=== PATIENT | male | born 1955 | race Caucasian/White ===

== ENCOUNTER 2020-11-01 13:08 | Inpatient (IN) | payer MEDICAID ==
[~2020-11-01] VITALS: Ht 170.2 cm; Wt 69.4 kg
--- NOTE | 2020-11-01 13:56 | NUR ---
DR. LEVY (ONCOLOGIST) [phone]
[2020-11-01] MEDS ORDERED: IV NS 0.9% 500 ML BAG IV ONE (14:00)
--- NOTE | 2020-11-01 14:00 | NUR ---
DA FROM PT'S ONCOLOGIST OFFICE TO ER BED 7. AAOX2. TRACH PT, NON VENTILATED. NOT IN RESP DISTRESS. PT WAS SENT TO THE ONCOLIGIST, DR. LEVY TO THE ER FOR DEHAYDRATION AND MALIGNANT HYPERCALCEMIA. PER ONCOLOGIST, THE LAB THAT WAS WITH THE PAT WAS 2 DAYS OLD WITH CALCIUM RESULT 13.1. PT WAS NOTED HYPOTENSIVE WITH BP OF 87/55 UPON TRIAGE. PT IS AFEBRILE. ANSWER VIA GUSTURING. AWAITING MD FOR EVAL. PT ON MONITOR. IV LINE ESTABLISHED ON L AC 20, BLOOD DRAWN AND SENT TO LAB
[2020-11-01] MEDS ORDERED: LIDOCAINE 2% JEL UROJET 10 ML MM ONE (15:07)
[2020-11-01 15:29] LABS: BASOPHILS # (AUTO) 0.1 /CMM (0.0-0.2); BASOPHILS % (AUTO) 0.7 % (0.0-2.0); EOSINOPHILS % (AUTO) 7.3 % (0.0-6.0); HEMATOCRIT 33 % (39-51); HEMOGLOBIN 9.9 g/dL (13.5-17.5); LYMPHOCYTES # (AUTO) 1.2 /CMM (0.8-4.8); LYMPHOCYTES % (AUTO) 10.3 % (20.0-44.0); MEAN CORPUSCULAR HGB CONC 30 g/dl (31.0-36.0); MEAN CORPUSCULAR VOLUME 88 fL (80-96); MONOCYTES % (AUTO) 8.2 % (2.0-12.0); NEUTROPHILS # (AUTO) 8.7 /CMM (1.8-8.9); NEUTROPHILS % (AUTO) 73.5 % (43.0-81.0); PLATELET COUNT (AUTO) 416 /CMM (150-450); RED BLOOD CELL COUNT(AUTO) 3.68 MIL/uL (4.5-6.0); WHITE BLOOD COUNT (AUTO) 11.8 K/uL (4.3-11.0)
[2020-11-01 15:34] LABS: BILIRUBIN,URINE NEGATIVE (NEGATIVE); COLOR,URINE YELLOW (YELLOW); LEUKOCYTE ESTERASE ,URINE NEGATIVE (NEGATIVE); NITRITE, URINE NEGATIVE (NEGATIVE); PH,URINE 5.5 (5.0-8.0); PROTEIN,URINE NEGATIVE (NEGATIVE); UGLUCOSE NEGATIVE (NEGATIVE); UROBILINOGEN,URINE 0.2 EU/dL (0.2)
[2020-11-01 15:38] LABS: POTASSIUM 4.7 mmol/L (3.5-5.1)
[2020-11-01 15:41] LABS: CALCIUM, SERUM 13.3 mg/dL (8.5-10.1)
[2020-11-01 15:43] LABS: BILIRUBIN,DIRECT 0.1 mg/dL (0.0-0.2); BILIRUBIN,TOTAL 0.2 mg/dL (0.2-1.0); TOTAL PROTEIN, SERUM 7.6 g/dL (6.4-8.2)
--- NOTE | 2020-11-01 16:37 | NUR ---
DR. BRUSH ORDERED TO GIVEN NS BOLUS OF 31ML/KG/HR. 31ML X 68.5KG = 2123.5 ML/HR. PT ALREADY RECIEVED 1000ML. ADDITIONAL 1123.5ML WILL BE GVEN
[2020-11-01] MEDS ORDERED: MEROPENEM 1 G in IV NS 0.9% 100 ML IV STA (16:46)
[2020-11-01] MEDS ORDERED: LOSA50TA39 GT (16:47)
[2020-11-01] MEDS ORDERED: OXYC5TAB3 PO (16:47)
[2020-11-01] MEDS ORDERED: MAG-55 GT (16:47)
[2020-11-01] MEDS ORDERED: BISA10SU11 RC (16:47)
[2020-11-01] MEDS ORDERED: ALBU2.5V38 IH (16:47)
[2020-11-01] MEDS ORDERED: ENOX40DI SQ (16:47)
[2020-11-01] MEDS ORDERED: ACET325T53 GT (16:47)
[2020-11-01] MEDS ORDERED: IPRA3AMP22 IH (16:47)
[2020-11-01] MEDS ORDERED: MAGN400O6 GT (16:47)
[2020-11-01] MEDS ORDERED: DOCU-141 GT (16:47)
[2020-11-01] MEDS ORDERED: ASCO500C17 GT (16:47)
[2020-11-01] MEDS ORDERED: CALC3.7S NS (16:47)
[2020-11-01] MEDS ORDERED: INSU100V42 (16:47)
[2020-11-01] MEDS ORDERED: FOLI0.8T3 GT (16:47)
[2020-11-01] MEDS ORDERED: BENEP PO (16:47)
[2020-11-01] MEDS ORDERED: BLOO-697 IN (16:48)
[2020-11-01] MEDS ORDERED: IV NS 0.9% 1,000 ML BAG IV ONE (17:00)
[2020-11-01] MEDS ORDERED: VANCOMYCIN 1 GM in IV D5W 250 ML IV SCH (17:00)
[2020-11-01] MEDS ORDERED: VANCOMYCIN 1 GM VIAL ONE (17:05)
--- NOTE | 2020-11-01 17:17 | NUR ---
REPORT GIVEN TO SHIRA MIRANDA FOR DAMON
--- NOTE | 2020-11-01 17:33 | NUR ---
PT WAS TRANSPORTED TO UNIT ON [place] WITH EMT AND RN AT BEDSIDE WITH ACLS PROTOCOL. NAD NOTED DURING TRANSPORT.
[2020-11-01 18:15] VITALS: BP 119/71
--- NOTE | 2020-11-01 18:30 | NUR ---
RN NOTE WARM BLANKETS APPLIED FOR TEMP OF 94.8. WILL CONTINUE TO MONITOR AND ENDORSE TO OFFAL SEPARATOR RN.
--- NOTE | 2020-11-01 19:00 | NUR ---
RN NOTE RECEIVED PATIENT IN BED, AO X 2-3, MOUTHS WORDS, OBEYS COMMANDS, IN NO S/SX OF ACUTE DISTRESS AT THIS TIME. ON TRACH TO T-PIECE, SATURATION AT 98% ON 5LPM, SR ON THE MONITOR, HR IS 82. NOTED IV SITE AT R AC 20G, PATENT AND FLUSHING WELL, NO S/S OF INFECTION OR INFILTRATION. GTUBE INTACT POSITIVE PLACEMENT NOTED, NO RESIDUAL. SAFETY MEASURES IMPLEMENTED. PATIENT BED ALARM IS ON. HEAD OF BED ELEVATED. BED IS LOCKED, IN LOWEST POSITION AND SIDE RAILS UP. CALL LIGHT WITHIN REACH OF THE PATIENT. WILL CONTINUE TO MONITOR AND REASSESS FOR ANY CHANGES. AWAITING MD ADMITTING ORDERS.
--- NOTE | 2020-11-01 19:04 | NUR ---
RN NOTE PATIENT IS IN BED WITH HOB AT SEMI FOWLERS POSITION. PATIENT ON 5L COOL AEROSOL NO SIGNS OF LABORED BREATHING. PATIENT IS AOX2. IV ACCESS IS PATENT AND INTACT. BED IS LOCKED IN THE LOWEST POSITION, 3 GUARD RAILS RAISED, CALL JEFFREY WITHIN REACH, AND ALL HOSPITAL SAFETY PRECAUTIONS ARE BEING FOLLOWED. WILL ENDORSE TO SELENA LANCASTER RN.
[2020-11-01 20:00] VITALS: BP 126/76
--- NOTE | 2020-11-01 21:00 | NUR ---
RN NOTE TELEPHONE CALL TO [facility] TO VERIFY TUBE FEEDING FORMULA, SPOKE WITH JOSE, STATED PATIENT WAS ON JEVITY 1.2 AT 55 ML/HR.
[2020-11-01] MEDS ORDERED: IV NS 0.9% 1,000 ML IV ONE ×2 (21:30)
[2020-11-01] MEDS ORDERED: BISACODYL SUPP (10 MG) 10 MG/SUPP.RECT SUPP.RECT RC PRN (21:30)
[2020-11-01] MEDS ORDERED: ACETAMINOPHEN 650 MG/SUPP.RECT RC PRN (21:30)
[2020-11-01] MEDS ORDERED: ALBUTEROL FS 2.5 MG/3 ML VIAL.NEB IH PRN (21:30)
[2020-11-01] MEDS ORDERED: Z GUARD REMEDY 2 OZ OINT TP PRN (21:30)
[2020-11-01] MEDS ORDERED: ONDANSETRON HCL/PF 4 MG/2 ML VIAL IVP PRN (21:30)
[2020-11-01] MEDS ORDERED: PAMIDRONATE 90 MG in IV NS 0.9% 500 ML IV ONE (21:30)
[2020-11-01] MEDS ORDERED: DEXTROSE 50%-WATER 50 ML DISP.SYRIN IV PRN (22:00)
[2020-11-01] MEDS: INSULIN GLARGINE, 100 UNIT/ML CARTRIDGE SQ SCH (22:00)
[2020-11-01] MEDS: LOSARTAN POTASSIUM 50 MG TABLET GT SCH (22:09)
[2020-11-01] MEDS: ENOXAPARIN SODIUM 40 MG/0.4 ML DISP.SYRIN SQ SCH (22:09)
[2020-11-01] MEDS ORDERED: PAMIDRONATE 30 MG/VIAL VIAL IV ONE (22:20)
[2020-11-01] MEDS ORDERED: INSULIN REGULAR, HUMAN 100 UNIT/ML 3 ML VIAL ONE (22:21)
[2020-11-01] MEDS ORDERED: INSULIN GLARGINE, 100 UNIT/ML CARTRIDGE SQ ONE (22:21)
[2020-11-01] MEDS ORDERED: JEVITY 1.2 CAL 1,000 ML BOTTLE GT PRN (23:00)
[2020-11-01] MEDS: BLOOD SUGAR DIAGNOSTIC 1 EACH STRIP IN SCH (23:17)
[2020-11-02] VITALS: BP 106/68
[2020-11-02] MEDS: MORPHINE SULFATE INJ 2 MG/ML DISP.SYRIN IV PRN ×2 (01:14→23:36)
[2020-11-02 03:39] LABS: BASOPHILS # (AUTO) 0.1 K/uL (0.0-0.2); EOSINOPHILS % (AUTO) 4.3 % (0.0-6.0); HEMATOCRIT 29 % (39-51); LYMPHOCYTES % (AUTO) 6.9 % (20.0-44.0); MEAN CORPUSCULAR HGB CONC 31 g/dl (31.0-36.0); MEAN CORPUSCULAR VOLUME 88 fL (80-96); MONOCYTES # (AUTO) 0.8 K/uL (0.1-1.30); MONOCYTES % (AUTO) 5.7 % (2.0-12.0); NEUTROPHILS # (AUTO) 11.5 K/uL (1.8-8.9); NEUTROPHILS % (AUTO) 82.1 % (43.0-81.0); PLATELET COUNT (AUTO) 432 K/uL (150-450)
[2020-11-02 04:00] VITALS: BP 113/68
[2020-11-02 04:04] LABS: THYROID STIMULATING HORMONE 4.246 uIU/mL (0.358-3.74)
[2020-11-02 05:30] LABS: ALBUMIN 1.8 g/dL (3.4-5.0); BILIRUBIN,TOTAL 0.2 mg/dL (0.2-1.0); MAGNESIUM 2.1 mg/dL (1.8-2.4); PHOSPHORUS 3.1 mg/dL (2.5-4.9); POTASSIUM 4.7 mmol/L (3.5-5.1); TOTAL PROTEIN, SERUM 7.2 g/dL (6.4-8.2)
[2020-11-02] MEDS: BLOOD SUGAR DIAGNOSTIC 1 EACH STRIP IN SCH ×4 (05:57→23:34)
--- NOTE | 2020-11-02 06:32 | NUR ---
RN NOTE TELEPHONE CALL FROM LAB, RELAYED CRITICAL LAB VALUE CALCIUM 13.0. DR WYNN WAS NOTIFIED, AWAITING MD ORDERS. MERCHANDISE PROCESSOR MADE AWARE.
[2020-11-02] MEDS ORDERED: JEVITY 1.2 CAL 1,000 ML BOTTLE GT PRN ×2 (07:10→09:00)
--- NOTE | 2020-11-02 07:40 | NUR ---
STERILE SUPERVISOR OPENING NOTE PATIENT IS IN BED RESTING, PATIENT IS ON TACHE, OXYGEN SATURATION ABOVE 90%, PATIENT HAS G-TUBE RUNNING JEVITY 1.2, PATIENT IS ON TELE MONITOR READING SINUS RHYTHM. SAFETY PRECAUTIONS ARE ON BED IS LOCKED IN THE LOWEST POSITION, WITH SIDE RAILS UP, CALL LIGHT WITHIN REACH, WILL CONTINUE TO MONITOR CLOSELY.
[2020-11-02 08:00] VITALS: BP 109/62
--- NOTE | 2020-11-02 09:06 | NUR ---
WOUND CARE CONSULT: PT PRESENTS WITH LARGE DRAINING RAISED LESION TO LEFT SIDE OF NECK WELL SACRAL INTACT DEEP TISSUE INJURY, PRESENT ON ADMISSION. DIFFICULT ASSESSMENT DUE TO PT MOANING WHEN TURNED TO SIDE DUE TO LESION DISCOMFORT. PT IS ON TIFFANY ISOFLEX LOW AIRLOSS BED. SURGICAL CONSULT CALLED TO DR RASMUSSEN. RECOMMENDATIONS MADE FOR SKIN PROTECTION. DISCUSSED WITH NURSING STAFF. IN AGREEMENT WITH PLAN OF CARE. Addendum: 11/02/20 at 0909 by LIA ANDERSON WNDNU Amended: Links added.
[2020-11-02] MEDS: FUROSEMIDE 20 MG/2 ML VIAL IV SCH (09:48)
[2020-11-02] MEDS: IV NS 0.9% 1,000 ML IV PRN ×2 (09:48→17:43)
[2020-11-02] MEDS: ASPIRIN EC 81 MG TABLET.DR PO SCH (09:49)
[2020-11-02] MEDS: PANTOPRAZOLE 40 MG VIAL IV SCH (09:49)
[2020-11-02] MEDS: CALCITONIN,SALMON,SYNTHETIC 3.7 ML SPRAY.PUMP NS SCH (09:52)
[2020-11-02 12:00] VITALS: BP 116/64
[2020-11-02] MEDS: INSULIN REGULAR, HUMAN 100 UNIT/ML 3 ML VIAL SQ PRN ×3 (13:29→23:35)
[2020-11-02] MEDS: FERROUS SULFATE UDC 300 MG/5 ML UDC PO SCH (15:28)
[2020-11-02 16:00] VITALS: BP 119/64
--- NOTE | 2020-11-02 18:33 | NUR ---
LIBERAL ARTS DEAN CLOSING NOTE PATIENT IS IN BED RESTING, PATIENT IS ON TACHE, OXYGEN SATURATION ABOVE 95%, PATIENT HAS G-TUBE RUNNING JEVITY 1.2, PATIENT IS ON TELE MONITOR READING SINUS RHYTHM IN 80s. SAFETY PRECAUTIONS ARE ON BED IS LOCKED IN THE LOWEST POSITION, WITH SIDE RAILS UP, CALL LIGHT WITHIN REACH, ENDORSE PATIENT TO GEOTECHNICAL FIELD TECHNICIAN NURSE. .
--- NOTE | 2020-11-02 19:00 | NUR ---
RN NOTE RECEIVED PATIENT IN BED, AO X 2-3, MOUTHS WORDS, OBEYS COMMANDS, IN NO S/SX OF ACUTE DISTRESS AT THIS TIME. ON TRACH TO T-PIECE, SATURATION AT 98% ON 5LPM, SR ON THE MONITOR, HR IS 85. NOTED IV SITE AT L AC 20G, PATENT AND FLUSHING WELL, NO S/S OF INFECTION OR INFILTRATION, WITH IV FLUID OF NS INFUSING AT 125 ML/HR. GTUBE INTACT POSITIVE PLACEMENT NOTED, NO RESIDUAL WITH TUBE FEEDING OF JEVITY 1.2 ANA AT 60ML/HR. SAFETY MEASURES IMPLEMENTED. PATIENT BED ALARM IS ON. HEAD OF BED ELEVATED. BED IS LOCKED, IN LOWEST POSITION AND SIDE RAILS UP. CALL LIGHT WITHIN REACH OF THE PATIENT. WILL CONTINUE TO MONITOR AND REASSESS FOR ANY CHANGES. AWAITING MD ADMITTING ORDERS.
[2020-11-02 20:00] VITALS: BP 120/68
--- NOTE | 2020-11-02 20:10 | NUR ---
RN NOTE MULTIPLE UNSUCCESSFUL ATTEMPTS TO CALL DAUGHTER DOMI ANDREWS AT [phone] TO [address]SENT FOR [address] WITH CONTRAST PER CARLOS SILVA. TELEPHONE CALL TO [facility] AT [phone], SPOKE WITH DANIEL, STATED DANCE HALL HOSTESS WOULD EITHER BE THE PATIENT'S DAUGHTER DOMI ANDREWS, OR GRAND DAUGHTER YANN ANDREWS ([phone]). TELEPHONE CALL TO YANN ANDREWS, SAID SHE IS THE MAIN DANCE HALL HOSTESS FOR THE PATIENT. SHE SAID SHE IS CONSENTING TO THE PROCEDURE CT WITH CONTRAST, WITH MOBILE HOME SERVICER YANN WITNESS. CONSENT FORM WAS SIGNED AND PLACED AT CHART.
[2020-11-02] MEDS: LOSARTAN POTASSIUM 50 MG TABLET GT SCH (21:38)
[2020-11-02] MEDS: ENOXAPARIN SODIUM 40 MG/0.4 ML DISP.SYRIN SQ SCH (21:38)
[2020-11-02] MEDS: INSULIN GLARGINE, 100 UNIT/ML CARTRIDGE SQ SCH (21:41)
[2020-11-03] VITALS: BP 111/67
--- NOTE | 2020-11-03 00:45 | NUR ---
RN NOTE TELEPHONE CALL TO LAB TO VERIFY IF PTHrP WAS DONE, PER MISCELLANEOUS ORDER FROM DR JALLOH. SPOKE WITH DEBO, STATED CORRECT ORDER WAS ENTERED ON SYSTEM, SPECIMEN WAS COLLECTED AND WAS SENT OUT. RESULTS PENDING. NET MOBILE DEVELOPER YANN ESPAÑA.
[2020-11-03 04:00] VITALS: BP 106/63
[2020-11-03] MEDS: BLOOD SUGAR DIAGNOSTIC 1 EACH STRIP IN SCH ×3 (05:38→17:33)
[2020-11-03] MEDS: MORPHINE SULFATE INJ 2 MG/ML DISP.SYRIN IV PRN ×2 (05:39→21:03)
[2020-11-03 06:00] LABS: BASOPHILS # (AUTO) 0.1 K/uL (0.0-0.2); EOSINOPHILS % (AUTO) 5.7 % (0.0-6.0); HEMATOCRIT 33 % (39-51); LYMPHOCYTES # (AUTO) 1.1 K/uL (0.8-4.8); MEAN CORPUSCULAR HGB CONC 31 g/dl (31.0-36.0); MEAN CORPUSCULAR VOLUME 88 fL (80-96); MONOCYTES # (AUTO) 0.8 K/uL (0.1-1.30); NEUTROPHILS # (AUTO) 8.7 K/uL (1.8-8.9); NEUTROPHILS % (AUTO) 76.3 % (43.0-81.0); PLATELET COUNT (AUTO) 420 K/uL (150-450); RED BLOOD CELL COUNT(AUTO) 3.69 MIL/uL (4.5-6.0); WHITE BLOOD COUNT (AUTO) 11.3 K/uL (4.3-11.0)
[2020-11-03 06:10] LABS: ALBUMIN 1.9 g/dL (3.4-5.0); BILIRUBIN,TOTAL 0.2 mg/dL (0.2-1.0); CALCIUM, SERUM 12.6 mg/dL (8.5-10.1); PHOSPHORUS 2.1 mg/dL (2.5-4.9); POTASSIUM 3.8 mmol/L (3.5-5.1); TOTAL PROTEIN, SERUM 7.4 g/dL (6.4-8.2)
[2020-11-03 08:00] VITALS: BP 114/71
[2020-11-03] MEDS ORDERED: CT SWABBABLE VALVE TRANS SET 1 EA INFUS.SET MC ONE (08:04)
[2020-11-03] MEDS ORDERED: IOHEXOL-300 100 ML VIAL IV ONE (08:04)
[2020-11-03] MEDS ORDERED: IV NS 0.9% 250 ML IV ONE (08:04)
[2020-11-03 08:06] LABS: IMMUNOGLOBULIN A, SERUM 868 mg/dL (61-437); IMMUNOGLOBULIN G, SERUM 2033 mg/dL (603-1613); IMMUNOGLOBULIN M, SERUM 69 mg/dL (20-172)
[2020-11-03] MEDS: FUROSEMIDE 20 MG/2 ML VIAL IV SCH (09:35)
[2020-11-03] MEDS: ASPIRIN EC 81 MG TABLET.DR PO SCH (09:35)
[2020-11-03] MEDS: FERROUS SULFATE UDC 300 MG/5 ML UDC PO SCH (09:35)
[2020-11-03] MEDS: CALCITONIN,SALMON,SYNTHETIC 3.7 ML SPRAY.PUMP NS SCH (09:56)
[2020-11-03] MEDS: PANTOPRAZOLE 40 MG VIAL IV SCH (09:56)
[2020-11-03] MEDS ORDERED: NEUTRA PHOS 1 POWD.PACKET GT ONE (10:30)
--- NOTE | 2020-11-03 11:00 | NUR ---
Application Internship assisted patient with tele box to Radiology for exam. Patient stable and roge well. Iv site free of infiltration.
[2020-11-03] MEDS: INSULIN REGULAR, HUMAN 100 UNIT/ML 3 ML VIAL SQ PRN ×2 (13:06→17:33)
[2020-11-03 14:07] LABS: *SPE A/G RATIO 0.5 (0.7-1.7); *SPE ALBUMIN 2.1 g/dL (2.9-4.4); *SPE ALPHA-1-GLOBULIN 0.3 g/dL (0.0-0.4); *SPE ALPHA-2-GLOBULIN 0.8 g/dL (0.4-1.0); *SPE BETA GLOBULIN 1.5 g/dL (0.7-1.3); *SPE GLOBULIN, TOTAL 4.6 g/dL (2.2-3.9); *SPE M-SPIKE Not Observed g/dL (Not Observed)
[2020-11-03 18:00] VITALS: BP 124/80
[2020-11-03] MEDS: IV 1/2NS 1000 ML 1,000 ML IV PRN (18:37)
--- NOTE | 2020-11-03 19:24 | NUR ---
RN CLOSING NOTES Patient is alert and oriented and able to mouth words. Breathing even and unlabored on trach t piece 5 liters. Vitals WNL. Gtube in place and patent with feeding running at 60 cc/hour. Condom cath in place. Patient on IV fluids 0.45% normal saline per MD Warren rawls orders due to Hypernatremia. Bed is in lowest and locked position. Will continue to monitor. Call light with in reach.Endorsed to next shift for DAMON.
--- NOTE | 2020-11-03 19:30 | NUR ---
RN NOTE RECEIVED PT ALERT, MOUTHING WORDS AND HAND SIGN FOR OK OR NOT, DENIES ANY PAIN AT THIS TIME. ON TPIECE AT 8 L. NO SIGNS OF DISTRESS. GT IN PLACE, ON GT FEEDING TOLERATING WELL, KEPT HOB ELEVATED, NO RESIDUALS NOTED. ON IV FLUIDS OF 1/2 NS, IV PATENT AND INTACT. CONDOM CATH IN PLACE. WILL CONTINUE TO MONITOR, ALL SAFETY MEASURES IN PLACE. CALL LIGHT WITHIN REACH BED LOCKED IN LOWEST POSITION, SIDE RAILS UP.
[2020-11-03 20:00] VITALS: BP 98/47
[2020-11-03] MEDS ORDERED: MEROPENEM 1 G in IV NS 0.9% 100 ML IV ONE (21:00)
[2020-11-03] MEDS ORDERED: MEROPENEM 500 MG in IV NS 0.9% 50 ML IV SCH (21:00)
[2020-11-03] MEDS: ENOXAPARIN SODIUM 40 MG/0.4 ML DISP.SYRIN SQ SCH (21:02)
[2020-11-03] MEDS: LOSARTAN POTASSIUM 50 MG TABLET GT SCH (21:56)
[2020-11-03] MEDS: INSULIN GLARGINE, 100 UNIT/ML CARTRIDGE SQ SCH (21:58)
[2020-11-04] MEDS: BLOOD SUGAR DIAGNOSTIC 1 EACH STRIP IN SCH ×5 (00:06→23:41)
[2020-11-04] MEDS: INSULIN REGULAR, HUMAN 100 UNIT/ML 3 ML VIAL SQ PRN ×2 (00:07→06:44)
[2020-11-04] MEDS: IV 1/2NS 1000 ML 1,000 ML IV PRN ×2 (03:53→22:31)
[2020-11-04 04:00] VITALS: BP 107/58
[2020-11-04] MEDS: MEROPENEM 1 G in IV NS 0.9% 100 ML IV SCH ×3 (04:39→22:29)
[2020-11-04 06:57] LABS: BASOPHILS # (AUTO) 0.1 K/uL (0.0-0.2); EOSINOPHILS % (AUTO) 6.6 % (0.0-6.0); HEMATOCRIT 32 % (39-51); HEMOGLOBIN 9.7 g/dL (13.5-17.5); LYMPHOCYTES % (AUTO) 9.4 % (20.0-44.0); MEAN CORPUSCULAR HGB CONC 30 g/dl (31.0-36.0); MEAN CORPUSCULAR VOLUME 92 fL (80-96); MONOCYTES # (AUTO) 0.8 K/uL (0.1-1.30); MONOCYTES % (AUTO) 7.2 % (2.0-12.0); NEUTROPHILS # (AUTO) 8.3 K/uL (1.8-8.9); NEUTROPHILS % (AUTO) 75.8 % (43.0-81.0); PLATELET COUNT (AUTO) 390 K/uL (150-450); RED BLOOD CELL COUNT(AUTO) 3.46 MIL/uL (4.5-6.0)
--- NOTE | 2020-11-04 07:00 | NUR ---
RN NOTE PT REMAIN IN BED, TOLERATING GT FEEDING, NO SIGNS OF ASPIRATION NOTED. KEPT HOB ELEVATED. VS STABLE, AFEBRILE. CONTINUE ON TPIECE AT 8L. SUCTIONED NEEDED. ON IVF OF 1/2 NS NO SIGNS OF INFILTRATION NOTED. KEPT CLEAN AND DRY. WILL ENDORSE TO NEXT SHIFT NURSE FOR DAMON.
[2020-11-04 07:29] LABS: CALCIUM, SERUM 11.9 mg/dL (8.5-10.1); CREATININE 0.9 mg/dL (0.6-1.3); MAGNESIUM 2.3 mg/dL (1.8-2.4); PHOSPHORUS 2.5 mg/dL (2.5-4.9); POTASSIUM 3.6 mmol/L (3.5-5.1)
--- NOTE | 2020-11-04 08:00 | NUR ---
RN OPENING NOTE PT AWAKE IN BED RESTING. A/O X3 AND UNDERSTANDS ROMANIAN. NODS/SHAKES HEAD TO NURSE INSTRUCTIONS. CURRENTLY ON T PIECE 8L. NO SOB OR RESPIRATORY DISTRESS PRESENT. O2 SAT 90%. NO HEEL BRUSHER PRESENT. ON BED PRESENT WITH DIAPER PRESENT. SKIN PROBLEMS PRESENT AND WOUND CARE GIVEN. WOUND PICTURES IN CHART. GT PRESENT WITH JEVITY RUNNING AT 60 ML/HR. IV PRESENT ON LA AC AND FLUSHES WELL. LABS AND ORDERS REVIEWED. SAFETY MEASURES IN PLACE. SIDE RAILS RAISED. BED LOWERED. CALL LIGHT WITHIN REACH. WILL CONTINUE TO MONITOR.
[2020-11-04] MEDS: ASPIRIN EC 81 MG TABLET.DR PO SCH (09:04)
[2020-11-04] MEDS: FUROSEMIDE 20 MG/2 ML VIAL IV SCH (09:04)
[2020-11-04] MEDS: FERROUS SULFATE UDC 300 MG/5 ML UDC PO SCH (09:04)
[2020-11-04] MEDS: CALCITONIN,SALMON,SYNTHETIC 3.7 ML SPRAY.PUMP NS SCH (09:07)
[2020-11-04] MEDS: PANTOPRAZOLE 40 MG TABLET.DR PO SCH (09:10)
[2020-11-04] MEDS: MORPHINE SULFATE INJ 2 MG/ML DISP.SYRIN IV PRN ×2 (09:16→13:12)
--- NOTE | 2020-11-04 10:00 | NUR ---
RN NOTE MORPHINE REASSESSMENT 02/03 915 NOT DONE BY NURSE YESTERDAY. PT AWAKE IN BED. WILL CONTINUE TO MONITOR
[2020-11-04 12:00] VITALS: BP 112/68
--- NOTE | 2020-11-04 19:02 | NUR ---
RN CLOSING NOTE PT AWAKE IN BED RESTING. A/O X3 AND UNDERSTANDS LITHUANIAN. NODS/SHAKES HEAD TO NURSE INSTRUCTIONS. CURRENTLY ON T PIECE 8L. NO SOB OR RESPIRATORY DISTRESS PRESENT. O2 SAT 90%. NO SEAT PACK INSPECTOR PRESENT. ON BED PRESENT WITH DIAPER PRESENT. SKIN PROBLEMS PRESENT AND WOUND CARE GIVEN. WOUND PICTURES IN CHART. GT PRESENT WITH JEVITY RUNNING AT 60 ML/HR. IV PRESENT ON LA AC AND FLUSHES WELL. LABS AND ORDERS REVIEWED. SAFETY MEASURES IN PLACE. SIDE RAILS RAISED. BED LOWERED. CALL LIGHT WITHIN REACH. REPORT TO BE GIVEN TO NIGHT NURSE FOR DAMON.
[2020-11-04 20:00] VITALS: BP 135/81
--- NOTE | 2020-11-04 20:19 | NUR ---
MS RN OPENING NOTE PATIENT IN BED A/OX4; GEORGIAN SPEAKING. ON O2 2LPM VIA N/C; TOLERATING WELL WITH NO SOB. NO S/SX OF PAIN OR DISCOMFORT. LAC #20G NS @ 75ML/HR; PATENT AND INTACT. SAFETY MEASURES IN PLACE: BED IN LOWEST LOCKED POSITION, SIDE RAILS UPX2, CALL LIGHT WITHIN EASY REACH. PATIENT IN STABLE CONDITION WILL CONTINUE PLAN OF CARE. Addendum: 11/05/20 at 0652 by JIMMY ART RN ERROR DISREGARD NOTE. WRONG PATIENT
[2020-11-04] MEDS: INSULIN GLARGINE, 100 UNIT/ML CARTRIDGE SQ SCH (22:00)
[2020-11-04] MEDS: ENOXAPARIN SODIUM 40 MG/0.4 ML DISP.SYRIN SQ SCH (22:30)
[2020-11-04] MEDS: LOSARTAN POTASSIUM 50 MG TABLET GT SCH (22:30)
[2020-11-05 04:00] VITALS: BP 119/68
--- NOTE | 2020-11-05 05:03 | NUR ---
RN notes In bed with eyes closed resting comfortably. No distress noted. Breathing even unlabored. On t-piece with 8lpm O2 tolerating well. No significant change of condition. Kept clean and dry. Vital signs wnl. Kept clean and dry. Will endorse to next shift for continuity of care.
[2020-11-05] MEDS: IV 1/2NS 1000 ML 1,000 ML IV PRN (05:07)
[2020-11-05] MEDS: MEROPENEM 1 G in IV NS 0.9% 100 ML IV SCH ×2 (05:08→12:27)
[2020-11-05] MEDS: BLOOD SUGAR DIAGNOSTIC 1 EACH STRIP IN SCH ×2 (05:38→12:14)
[2020-11-05] MEDS: INSULIN GLARGINE, 100 UNIT/ML CARTRIDGE SQ SCH (05:39)
[2020-11-05 07:06] LABS: BASOPHILS # (AUTO) 0.1 K/uL (0.0-0.2); EOSINOPHILS % (AUTO) 4.1 % (0.0-6.0); HEMATOCRIT 33 % (39-51); HEMOGLOBIN 10.3 g/dL (13.5-17.5); LYMPHOCYTES # (AUTO) 1.2 K/uL (0.8-4.8); LYMPHOCYTES % (AUTO) 8.2 % (20.0-44.0); MEAN CORPUSCULAR HGB CONC 31 g/dl (31.0-36.0); MEAN CORPUSCULAR VOLUME 89 fL (80-96); MONOCYTES # (AUTO) 0.9 K/uL (0.1-1.30); MONOCYTES % (AUTO) 6.2 % (2.0-12.0); NEUTROPHILS # (AUTO) 11.3 K/uL (1.8-8.9); NEUTROPHILS % (AUTO) 80.5 % (43.0-81.0); PLATELET COUNT (AUTO) 381 K/uL (150-450); RED BLOOD CELL COUNT(AUTO) 3.77 MIL/uL (4.5-6.0); WHITE BLOOD COUNT (AUTO) 14.1 K/uL (4.3-11.0)
--- NOTE | 2020-11-05 07:46 | NUR ---
MS/RN OPENING NOTE RECEIVED PT IN BED RESTING. A/O X3 AND UNDERSTANDS LIBYAN. NODS/SHAKES HEAD TO NURSE INSTRUCTIONS. CURRENTLY ON T PIECE 8L. NO SOB OR RESPIRATORY DISTRESS PRESENT. GT PRESENT WITH JEVITY RUNNING AT 60 ML/HR. IV PRESENT ON LA AC WITH RUNNING NS AT @125 ML/HR. SAFETY MEASURES IN PLACE. SIDE RAILS UPX3, BED LOWERED AND LOCKED. CALL LIGHT WITHIN REACH. WILL CONTINUE TO MONITOR PATIENT.
[2020-11-05 07:49] LABS: CALCIUM, SERUM 11.6 mg/dL (8.5-10.1); CREATININE 0.7 mg/dL (0.6-1.3); PHOSPHORUS 2.7 mg/dL (2.5-4.9); POTASSIUM 3.6 mmol/L (3.5-5.1)
[2020-11-05 08:00] VITALS: BP 101/59
[2020-11-05] MEDS: PANTOPRAZOLE 40 MG TABLET.DR PO SCH (08:54)
[2020-11-05] MEDS: FUROSEMIDE 20 MG/2 ML VIAL IV SCH (08:54)
[2020-11-05] MEDS: ASPIRIN EC 81 MG TABLET.DR PO SCH (08:54)
[2020-11-05] MEDS: FERROUS SULFATE UDC 300 MG/5 ML UDC PO SCH (08:54)
[2020-11-05] MEDS: CALCITONIN,SALMON,SYNTHETIC 3.7 ML SPRAY.PUMP NS SCH (08:57)
[2020-11-05] MEDS ORDERED: MERO1PIG IV (11:48)
[2020-11-05] MEDS ORDERED: ASPI-1420 PO (11:48)
[2020-11-05] MEDS: INSULIN REGULAR, HUMAN 100 UNIT/ML 3 ML VIAL SQ PRN (12:31)
[2020-11-05 12:36] VITALS: BP 101/59
[2020-11-05 16:00] VITALS: BP 104/62
--- NOTE | 2020-11-05 16:45 | NUR ---
MS/ANODE REBUILDER NOTE PATIENT IS MEDICALLY STABLE. DR. JALLOH ORDERED DISCHARGED FOR THIS PATIENT. PATIENT IS TRANSFERRING TO [facility] AND CALLED IN ENDORSEMENTS TO ARIANNE (SPECIAL NEEDS TUTOR CHARGE NURSE) AT THE FACILITY. IV ACCESS ON LEFT AC LEFT ON INTACT AND PATENT DUE TO CONTINUATION OF IV ATB AT THE SNF. STAFF AWARE. NON-EMERGENCY TRANSPORTATION PICKED HIM UP, ENDORSEMENTS GIVEN TO RT CHETAN WITH THE EMT. PATIENT IS ALERT ORIENTED X2. G-TUBE AND T-PIECE ON 8 LPM OF OXYGEN SATURATING WELL AT 97%. V/S WITHIN NORMAL. ALL DISCHARGE PAPERS ENDORSED TO RT CHETAN. ALL BELONGINGS ACCOUNTED FOR.
== END 2020-11-05 16:58 | DRG 425 ==
LOC: ER 13:35 → TELE1 16:34 → MEDSG1 11-03 08:20
PROVIDERS: ADMIT Nurse Practitioner Acute Care; ATTEND Nurse Practitioner Acute Care
DX: E83.52 Hypercalcemia (principal); I21.4 Non-ST elevation (NSTEMI) myocardial infarction; N17.0 Acute kidney failure with tubular necrosis; J96.10 Chronic respiratory failure, unspecified whether with hypoxia or hypercapnia; C77.1 Secondary and unspecified malignant neoplasm of intrathoracic lymph nodes; Z93.0 Tracheostomy status; D68.59 Other primary thrombophilia; C79.89 Secondary malignant neoplasm of other specified sites; E86.0 Dehydration; R13.10 Dysphagia, unspecified; E11.40 Type 2 diabetes mellitus with diabetic neuropathy, unspecified; E88.09 Other disorders of plasma-protein metabolism, not elsewhere classified; G40.909 Epilepsy, unspecified, not intractable, without status epilepticus; E11.65 Type 2 diabetes mellitus with hyperglycemia; Z85.818 Personal history of malignant neoplasm of other sites of lip, oral cavity, and pharynx; Z20.822 Contact with and (suspected) exposure to COVID-19; D64.9 Anemia, unspecified; E78.5 Hyperlipidemia, unspecified; I70.0 Atherosclerosis of aorta; Z93.1 Gastrostomy status; Z79.4 Long term (current) use of insulin; Z79.51 Long term (current) use of inhaled steroids; Z79.899 Other long term (current) drug therapy; Z87.891 Personal history of nicotine dependence; L98.9 Disorder of the skin and subcutaneous tissue, unspecified; Z79.01 Long term (current) use of anticoagulants; Z74.09 Other reduced mobility; Z85.89 Personal history of malignant neoplasm of other organs and systems; D72.829 Elevated white blood cell count, unspecified; C76.0 Malignant neoplasm of head, face and neck; Z98.890 Other specified postprocedural states; J98.11 Atelectasis
CPT/HCPCS: 31720; 36415; 70491-TC; 71045-TC; 71260-TC; 80048-TC; 80053-TC; 80061-TC; 80076-TC; 82728-TC; 82784; 82962-TC; 83540-TC; 83605-TC; 83690-TC; 83735-TC; 84100-TC; 84155; 84165; 84443-TC; 84484-TC; 85025-TC; 85730-TC; 86334; 87040-TC; 87070-TC; 87081-TC; 87086-TC; 87186-TC; 93307-TC; 93970-TC; 94640-TC; 94668-TC; 94762-TC; 94799-TC; A4349; A6253; A7526; C9113; C9803; G0378; J1650; J1815; J1940; J2185; J2270; J2430; J3370; J3490; J7030; J7040; J7050; J7060; Q9967; U0003

== ENCOUNTER 2020-11-05 22:32 | Inpatient (IN) | payer MEDICAID, BC ==
[~2020-11-05] VITALS: Ht 170.2 cm; Wt 69.4 kg
[2020-11-05 01:30] VITALS: BP 113/69
[~2020-11-05 22:32] MED LIST: ACET325T53 GT; ALBU2.5V38 IH; ASCO500C17 GT; ASPI-1420 PO; BENEP PO; BISA10SU11 RC; BLOO-697 IN; CALC3.7S NS; DOCU-141 GT; ENOX40DI SQ; FOLI0.8T3 GT; INSU100V42; IPRA3AMP22 IH; LOSA50TA39 GT; MAG-55 GT; MAGN400O6 GT; MERO1PIG IV; OXYC5TAB3 PO
--- NOTE | 2020-11-05 22:40 | NUR ---
PATIENT CAME TO ER BED 5 C/O SOB FROM [facility] AT 80s O2 SATURATION. PATIENT IS ALERT AND ORIENTED x1. ABLE TO FOLLOW COMMANDS. PATIENT HAS TRACHEOSTOMY IN PLACE, G-TUBE. PATIENT IS BREATHING EVENLY AND UNLABORED ON ROOM AIR. CONNECTED TO THE MONITOR.
--- NOTE | 2020-11-05 23:01 | NUR ---
PATIENT IS SUCTIONED. YELLOW THICK SECRETIONS SUCTIONED FROM THE TRACHEOSTOMY SITE. PATIENT'S OXYGEN IS 100% ON BLOW BY O2.
--- NOTE | 2020-11-05 23:20 | NUR ---
BLOOD AND URINE COLLECTED AND SENT TO THE LAB.
[2020-11-05 23:30] LABS: BASOPHILS # (AUTO) 0.1 K/uL (0.0-0.2); EOSINOPHILS % (AUTO) 6.8 % (0.0-6.0); HEMATOCRIT 35 % (39-51); HEMOGLOBIN 10.9 g/dL (13.5-17.5); LYMPHOCYTES # (AUTO) 1.3 K/uL (0.8-4.8); LYMPHOCYTES % (AUTO) 9.8 % (20.0-44.0); MEAN CORPUSCULAR HGB CONC 32 g/dl (31.0-36.0); MEAN CORPUSCULAR VOLUME 87 fL (80-96); MONOCYTES # (AUTO) 0.8 K/uL (0.1-1.30); NEUTROPHILS # (AUTO) 10.4 K/uL (1.8-8.9); NEUTROPHILS % (AUTO) 76.4 % (43.0-81.0); PLATELET COUNT (AUTO) 404 K/uL (150-450); RED BLOOD CELL COUNT(AUTO) 3.96 MIL/uL (4.5-6.0); WHITE BLOOD COUNT (AUTO) 13.6 K/uL (4.3-11.0)
[2020-11-05 23:38] LABS: CALCIUM, SERUM 11.9 mg/dL (8.5-10.1); CARBON DIOXIDE 29 mmol/L (21-32); CHLORIDE 109 mmol/L (98-107); CREATININE 0.9 mg/dL (0.6-1.3); GLUCOSE 181 mg/dL (74-106); POTASSIUM 3.6 mmol/L (3.5-5.1); SODIUM SERUM 145 mmol/L (136-145); UREA NITROGEN, BLOOD 18 mg/dL (7-18)
--- NOTE | 2020-11-05 23:48 | NUR ---
LACTIC 2.3
[2020-11-05 23:50] LABS: ALANINE AMINOTRANSFERASE 28 U/L (12-78); ALBUMIN 1.8 g/dL (3.4-5.0); ALKALINE PHOSPHATASE 88 U/L (46-116); ASPARTATE AMINOTRANSFERASE 14 U/L (15-37); BILIRUBIN,DIRECT 0.1 mg/dL (0.0-0.2); BILIRUBIN,TOTAL 0.2 mg/dL (0.2-1.0); TOTAL PROTEIN, SERUM 7.8 g/dL (6.4-8.2)
[2020-11-05] MEDS ORDERED: LIDOCAINE 2% JEL UROJET 10 ML MM ONE (23:58)
[2020-11-06] MEDS ORDERED: PIPERACILLIN /TAZOBACTAM 3.375 G in IV D5W 50 ML IV ONE
[2020-11-06] MEDS ORDERED: VANCOMYCIN 1 GM in IV D5W 250 ML IV ONE
[2020-11-06] MEDS ORDERED: IV NS 0.9% 500 ML BAG IV ONE
[2020-11-06 00:07] LABS: BILIRUBIN,URINE Negative (NEGATIVE); COLOR,URINE YELLOW (YELLOW); LEUKOCYTE ESTERASE ,URINE Negative (NEGATIVE); NITRITE, URINE Negative (NEGATIVE); PROTEIN,URINE Negative (NEGATIVE); UGLUCOSE Negative (NEGATIVE); UROBILINOGEN,URINE 0.2 EU/dL (0.2)
[2020-11-06] MEDS ORDERED: PIPERACILLIN /TAZOBACTAM 3.375 G VIAL IV ONE ×2 (00:27→05:19)
[2020-11-06] MEDS ORDERED: VANCOMYCIN 1 GM VIAL ONE (00:27)
[2020-11-06] MEDS ORDERED: MAGNESIUM HYDROXIDE 30 ML UDC PO PRN (01:00)
[2020-11-06] MEDS ORDERED: ONDANSETRON HCL/PF 4 MG/2 ML VIAL IVP PRN (01:00)
[2020-11-06] MEDS ORDERED: Z GUARD REMEDY 2 OZ OINT TP PRN (01:00)
[2020-11-06] MEDS ORDERED: ACETAMINOPHEN 325 MG TABLET PO PRN (01:00)
[2020-11-06] MEDS ORDERED: MAG HYDROX/AL HYDROX/SIMETH 30 ML UDC PO PRN (01:00)
[2020-11-06] MEDS ORDERED: ZOLPIDEM TARTRATE 5 MG TABLET PO PRN (01:00)
--- NOTE | 2020-11-06 01:09 | NUR ---
REPORT GIVEN TO [facility].
--- NOTE | 2020-11-06 01:20 | NUR ---
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
--- NOTE | 2020-11-06 01:32 | NUR ---
PT TRANSFERED PER ACLS PROTOCOL
[2020-11-06] MEDS: IV 1/2NS 1000 ML 1,000 ML IV PRN ×2 (02:00→11:55)
--- NOTE | 2020-11-06 02:00 | NUR ---
TELE1 RN NOTES STARTED ON IVF 1/2 NS AT 125ML/HR RATE VIA IV PUMP WITH ORDER.
[2020-11-06] MEDS: ENOXAPARIN SODIUM 40 MG/0.4 ML DISP.SYRIN SQ SCH ×2 (02:03→20:13)
--- NOTE | 2020-11-06 02:03 | NUR ---
TELE1 RN NOTES STARTED ON LOVENOX 40MG GIVEN SQ ORDERED.
--- NOTE | 2020-11-06 03:30 | NUR ---
PERIOPERATIVE EDUCATOR NOTES REPORTED BY LAB,LACTIC ACID 2.0,TRENDING DOWN,PRESENT IVF INFUSING AT 125,L/HR RATE.
[2020-11-06] MEDS ORDERED: ZOSYN IVPB 3.375 G in IV D5W 50ml IV ONE (06:00)
--- NOTE | 2020-11-06 06:35 | NUR ---
TELE1 RN NOTES LYING COMFORTABLY ON BED,NO EPISODE OF SOB.IVF IN PROGRESS.KEPT NPO ORDERED.NO DISTRESS.WILL ENDORSE TO DAY NURSE FOR DAMON.
--- NOTE | 2020-11-06 07:05 | NUR ---
RN NOTES PATIENT IN BED RESTING, EYES CLOSED. A,O X1, OPENS EYES WHEN CALLED BY NAME. ON T PIECE AT 5L TO COOL AEROSOL, NO RESPIRATORY DISTRESS NOTED. IV LINE ON RAC #18 INTACT AND PATENT, IVF OF 1/2 NS @ 125ML/HR INFUSING WELL. NPO STATUS MAINTAINED. GT CLAMPED AT THIS TIME; INTACT AND ABLE TO BE FLUSHED. SAFETY MEASURES IN PLACE. WILL CONTINUE TO MONITOR.
--- NOTE | 2020-11-06 07:06 | NUR ---
RN NOTES TELE MONITOR, READING OF SR, HR IN THE 70'S, NO CARDIAC DISTRESS.
[2020-11-06] MEDS: PANTOPRAZOLE 40 MG TABLET.DR PO SCH (07:54)
[2020-11-06] MEDS ORDERED: DEXTROSE 50%-WATER 50 ML DISP.SYRIN IV PRN (09:00)
[2020-11-06] MEDS ORDERED: ALBUTEROL FS 2.5 MG/3 ML VIAL.NEB IH PRN (09:00)
[2020-11-06] MEDS ORDERED: ACETAMINOPHEN 650 MG/20.3 ML UDC GT PRN (09:00)
[2020-11-06] MEDS ORDERED: BENEPROTEIN PO SCH (09:00)
[2020-11-06] MEDS ORDERED: BISACODYL SUPP (10 MG) 10 MG/SUPP.RECT SUPP.RECT RC PRN (09:00)
[2020-11-06] MEDS ORDERED: Medication Not On Formulary EA (Ipratropium/Albuterol Sulfate (Ipratr-Albuterol 0.5-3 Mg IH PRN (09:00)
[2020-11-06] MEDS ORDERED: IPRATROPIUM NEB FS 0.5 MG/2.5 ML AMPUL.NEB NEB PRN (09:30)
[2020-11-06] MEDS ORDERED: ALBUTEROL FS 2.5 MG/0.5 ML VIAL.NEB NEB PRN (09:30)
[2020-11-06] MEDS: ASPIRIN EC 81 MG TABLET.DR PO SCH (09:45)
[2020-11-06] MEDS: ASCORBIC ACID 500 MG TABLET PO SCH (09:45)
[2020-11-06] MEDS: FOLIC ACID 1 MG TABLET PO SCH (09:45)
[2020-11-06] MEDS: CALCITONIN,SALMON,SYNTHETIC 3.7 ML SPRAY.PUMP NS SCH (10:03)
[2020-11-06] MEDS ORDERED: VANCOMYCIN 1 GM in IV D5W 250 ML IV SCH (12:00)
[2020-11-06] MEDS ORDERED: ZOSYN IVPB 3.375 G in IV D5W 50ml IV SCH (12:00)
[2020-11-06] MEDS: BLOOD SUGAR DIAGNOSTIC 1 EACH STRIP IN SCH ×3 (12:01→23:20)
[2020-11-06] MEDS: INSULIN REGULAR, HUMAN 100 UNIT/ML 3 ML VIAL SQ PRN ×3 (12:03→23:20)
[2020-11-06] MEDS ORDERED: COLISTIMETHATE SODIUM 75 MG in IV NS 0.9% 50 ML IV SCH (12:30)
[2020-11-06] MEDS: CLINDAMYCIN 900 MG in IV D5W 50 ML IV SCH ×2 (13:04→20:11)
--- NOTE | 2020-11-06 13:49 | NUR ---
RN NOTES PATIENT WAS SEEN BY ARNOLDO JONES NP; OK FOR WOUND CONSULT FOR PATIENT.
[2020-11-06] MEDS: COLISTIMETHATE SODIUM 150 MG in IV NS 0.9% 50 ML IV SCH (13:53)
--- NOTE | 2020-11-06 19:00 | NUR ---
RN NOTE RECEIVED PATIENT IN BED RESTING ALERT CONFUSED ON 28% COOL AEROSOL ON T PIECE O2:100% IV SITE IS ON RIGHT AC #22 INTACT PATENT IV HYDRATION 1/2 NS RUNNING 125CC/HR,INCONTINENT TO BOWEL/BLADDER,SAFETY MEASURE IMPLEMENT,BED IN LOW POSITION AND LOCKED, CONTINUE TO MONITOR.
--- NOTE | 2020-11-06 19:10 | NUR ---
RN NOTES PATIENT RESTING IN BED, ABLE TO BE AWAKENED. CONTINUES ON COOL AEROSOL VIA T-PIECE, NO RESPIRATORY DISTRESS NOTED. IVF INFUSING WELL. SAFETY MEASURES MAINTAINED. GT IS INTACT AND PATENT. ENDORSED TO HAND ASSEMBLER RN FOR DAMON.
[2020-11-06 20:00] VITALS: BP 135/79
[2020-11-06] MEDS: LOSARTAN POTASSIUM 50 MG TABLET GT SCH (21:12)
[2020-11-07] VITALS: BP 121/71
--- NOTE | 2020-11-07 | NUR ---
RN NOTE BLOOD SUGAR IS 83 NOT REQUIRES INSULIN CONTINUE TO MONITOR
[2020-11-07] MEDS: HYDROCODONE/APAP 5/325MG TABLET PO PRN ×2 (00:28→08:54)
[2020-11-07] MEDS: IV 1/2NS 1000 ML 1,000 ML IV PRN ×2 (00:31→10:32)
[2020-11-07] MEDS: COLISTIMETHATE SODIUM 150 MG in IV NS 0.9% 50 ML IV SCH ×2 (01:37→13:53)
[2020-11-07 04:00] VITALS: BP 104/55
[2020-11-07] MEDS: CLINDAMYCIN 900 MG in IV D5W 50 ML IV SCH (05:24)
--- NOTE | 2020-11-07 06:00 | NUR ---
RN NOTE BLOOD SUGAR IS 72 NOT REQUIRES INSULIN PER SLIDING SCALE CONTINUE TO MONITOR.
[2020-11-07 06:05] LABS: BASOPHILS % (AUTO) 0.9 % (0.0-2.0); EOSINOPHILS % (AUTO) 9.1 % (0.0-6.0); HEMATOCRIT 28 % (39-51); LYMPHOCYTES # (AUTO) 1.2 K/uL (0.8-4.8); LYMPHOCYTES % (AUTO) 11.2 % (20.0-44.0); MEAN CORPUSCULAR HGB CONC 32 g/dl (31.0-36.0); MEAN CORPUSCULAR VOLUME 87 fL (80-96); MONOCYTES % (AUTO) 6.8 % (2.0-12.0); NEUTROPHILS # (AUTO) 7.9 K/uL (1.8-8.9); PLATELET COUNT (AUTO) 306 K/uL (150-450); RED BLOOD CELL COUNT(AUTO) 3.25 MIL/uL (4.5-6.0)
[2020-11-07 06:06] LABS: BASOPHILS # (AUTO) 0.1 K/uL (0.0-0.2); MONOCYTES # (AUTO) 0.7 K/uL (0.1-1.30)
[2020-11-07 06:17] LABS: CALCIUM, SERUM 10.8 mg/dL (8.5-10.1); CREATININE 0.7 mg/dL (0.6-1.3); MAGNESIUM 1.8 mg/dL (1.8-2.4); PHOSPHORUS 2.5 mg/dL (2.5-4.9); POTASSIUM 3.3 mmol/L (3.5-5.1)
[2020-11-07] MEDS: BLOOD SUGAR DIAGNOSTIC 1 EACH STRIP IN SCH ×4 (06:17→23:58)
[2020-11-07] MEDS: INSULIN REGULAR, HUMAN 100 UNIT/ML 3 ML VIAL SQ PRN (06:18)
[2020-11-07 06:30] LABS: THYROID STIMULATING HORMONE 4.682 uIU/mL (0.358-3.74)
--- NOTE | 2020-11-07 07:29 | NUR ---
RN NOTE PATIENT REMAINS ON ALERT CONFUSED ON T PIECE COOL AEROSOL 28% O2:100% NO SOB NOT ACUTE DISTRESS NOTED ALL DUE MEDS GIVEN MD ORDERED KEPT CLEAN AND DRY ALL THE TIME,ALL NEEDS MET.ENDORSE NEXT COMING SHIFT FOR CONTINUATION OF CARE
[2020-11-07 08:00] VITALS: BP 115/63
--- NOTE | 2020-11-07 08:00 | NUR ---
GOLF CART ATTENDANT NOTE PATIENT IN BED , ALL NEEDS ATTENDED ALERT ORIENTEDX2 , ON TELE MONITOR SR HR 73, LT SIDE NECK WITH DRESSING INTACT , ON NPO AT THIS TIME ON IVF ORDERED, WITH TYRACH TO T PIECE COOL AEROSOL 28% SATURATION 100%, RT AC HL INTACT AND FLUSHED WELL . CALLED TO ARNOLDO SCHWARTZ RN LUBRICATION EQUIPMENT SERVICER ABOUT G TUBE FEEDING ,STATED THAT PLACE ORDER FOR FEEDING SINCE YESTERDAY, WILL START G TUBE FEEDING ORDERED, KEEP HOB ELEVATED AT ALL TIME ,BED IN LOWEST AND LOCKED POSITION, WILL MONITOR, C\O PAIN NECK, NORCO WILL BE GIVEN ORDERED , BLOOD SUGAR 62 MG DL WILL MONITOR
[2020-11-07] MEDS: FERROUS SULFATE UDC 300 MG/5 ML UDC PO SCH (08:53)
[2020-11-07] MEDS: ASPIRIN EC 81 MG TABLET.DR PO SCH (08:53)
[2020-11-07] MEDS: PANTOPRAZOLE 40 MG TABLET.DR PO SCH (08:54)
[2020-11-07] MEDS: FOLIC ACID 1 MG TABLET PO SCH (08:54)
[2020-11-07] MEDS: ASCORBIC ACID 500 MG TABLET PO SCH (08:54)
[2020-11-07] MEDS: CALCITONIN,SALMON,SYNTHETIC 3.7 ML SPRAY.PUMP NS SCH (08:56)
--- NOTE | 2020-11-07 09:05 | NUR ---
CENTRIFUGAL OPERATOR NOTE BLOOD SUGAR 93 MG\DL AT THIS TIME
--- NOTE | 2020-11-07 09:33 | NUR ---
SENIOR DB2 SYSTEMS PROGRAMMER NOTE PER DR SHARI MONTGOMERY TO STARRT G TUBE FEEDING
--- NOTE | 2020-11-07 10:53 | NUR ---
WOUND CARE CONSULT: PT PRESENTS WITH LEFT SIDE OF NECK RAISED LESION AND SACRAL BONY AREA WITH DISCOLORATION, PRESENT ON ADMISSION. RECOMMENDATIONS MADE FOR SKIN PROTECTION AND WOUND CARE. DISCUSSED WITH NURSING STAFF AND SURGICAL Lionel EDMONDS. PT IS ON TIFFANY ISOFLEX LOW AIRLOSS BED. PT IS INCONTINENT. MD IN AGREEMENT WITH PLAN OF CARE. Addendum: 11/07/20 at 1055 by LIA ANDERSON WNDNU Amended: Links added.
[2020-11-07] MEDS ORDERED: POTASSIUM CHLORIDE 20 MEQ POWDER PACKET GT SCH (11:00)
[2020-11-07 12:00] VITALS: BP 96/53
--- NOTE | 2020-11-07 13:24 | NUR ---
emergency telecommunications dispatcher note seen by rt on breathing tx
[2020-11-07] MEDS ORDERED: IV 1/2NS 1000 ML 1,000 ML IV PRN (14:01)
[2020-11-07 16:00] VITALS: BP 101/71
--- NOTE | 2020-11-07 17:27 | NUR ---
telephone installer note patient in bed cont withtrach to cooler aerosol, rt at bedside dressing change on lt side neck keep clean dry ,on g tube feeding tolerated, well keep hob elevated at all time ,will cont to monitor
--- NOTE | 2020-11-07 18:53 | NUR ---
RN CLOSING NOTE PATIENT IN BED RESTING, AWAKE AND RESPONSIVE A,O X1-2, OPENS EYES WHEN CALLED BY NAME. ON T PIECE AT 5L 28% TO COOL AEROSOL, NO RESPIRATORY DISTRESS OR SOB NOTED. O2 SATURATIONS ABOVE 96%. IV LINE ON RAC #22 INTACT AND PATENT, IVF OF 1/2 NS @ 125ML/HR DECREASED TO 83ML/HR INFUSING WELL. G TUBE FEEDING STARTED JEVITY 1.2, RUNNING AT 55ML/ HR PER MD ORDERS, TOLERATING WELL. PLACEMENT ASSESSED AND NO RESIDUALS NOTED. PAIN VERBALIZED THROUGH NON-VERBAL SCALE, GRIMACING AND MOANING TREATED WITH PRN NORCO 3-325 PER MD ORDERS. PAIN RE-ASSESSMENT GIVEN AND DECREASED PER NON-VERBAL SCALE, RESTING AND NO GRIMACING OR SIGNS OF DISCOMFORT. SAFETY MEASURES IN PLACE. BED LOWEST POSITION, CALL LIGHT WITHIN REACH, BED RAILS UP X3, BED ALARM. NO ACUTE DISTRESS NOTED AT THIS TIME. WILL ENDORSE CONTINUITY OF CARE TO TELEPHONE QUOTATION CLERK RN.
--- NOTE | 2020-11-07 19:30 | NUR ---
PLATER HOT DIP NOTES PATIENT IN BED RESTING, AWAKE AND RESPONSIVE A,O X1-2, OPENS EYES WHEN CALLED BY NAME. ON T PIECE AT 5L 28% TO COOL AEROSOL, NO RESPIRATORY DISTRESS OR SOB NOTED. O2 SATURATIONS ABOVE 96%. IV LINE ON RAC #22 INTACT AND PATENT, IVF OF 1/2 NS @ 83ML/HR INFUSING WELL. G TUBE FEEDING STARTED JEVITY 1.2, RUNNING AT 55ML/ HR PER MD ORDERS, TOLERATING WELL. PLACEMENT ASSESSED AND NO RESIDUALS NOTED. NO PAIN NOTED OR REPORTED. SAFETY MEASURES IN PLACE. BED LOWEST POSITION, CALL LIGHT WITHIN REACH, BED RAILS UP X3, BED ALARM. NO ACUTE DISTRESS NOTED AT THIS TIME. WILL CONTINUE TO MONITOR.
[2020-11-07 20:47] VITALS: BP 108/60
[2020-11-07] MEDS: ENOXAPARIN SODIUM 40 MG/0.4 ML DISP.SYRIN SQ SCH (21:23)
[2020-11-07] MEDS: LOSARTAN POTASSIUM 50 MG TABLET GT SCH (21:50)
[2020-11-08] VITALS: BP 129/66
[2020-11-08] MEDS: COLISTIMETHATE SODIUM 150 MG in IV NS 0.9% 50 ML IV SCH ×2 (01:25→14:04)
[2020-11-08 04:00] VITALS: BP 119/67
[2020-11-08] MEDS: BLOOD SUGAR DIAGNOSTIC 1 EACH STRIP IN SCH ×3 (05:55→18:05)
[2020-11-08] MEDS: INSULIN REGULAR, HUMAN 100 UNIT/ML 3 ML VIAL SQ PRN ×3 (06:04→18:06)
[2020-11-08 06:31] LABS: BASOPHILS # (AUTO) 0.1 K/uL (0.0-0.2); BASOPHILS % (AUTO) 0.9 % (0.0-2.0); HEMATOCRIT 30 % (39-51); HEMOGLOBIN 9.4 g/dL (13.5-17.5); LYMPHOCYTES # (AUTO) 1.1 K/uL (0.8-4.8); LYMPHOCYTES % (AUTO) 9.1 % (20.0-44.0); MEAN CORPUSCULAR HGB CONC 32 g/dl (31.0-36.0); MEAN CORPUSCULAR VOLUME 86 fL (80-96); MONOCYTES # (AUTO) 0.8 K/uL (0.1-1.30); MONOCYTES % (AUTO) 6.7 % (2.0-12.0); NEUTROPHILS % (AUTO) 75.3 % (43.0-81.0); PLATELET COUNT (AUTO) 333 K/uL (150-450); RED BLOOD CELL COUNT(AUTO) 3.45 MIL/uL (4.5-6.0); WHITE BLOOD COUNT (AUTO) 11.9 K/uL (4.3-11.0)
[2020-11-08 06:40] LABS: CALCIUM, SERUM 11.2 mg/dL (8.5-10.1); CREATININE 0.8 mg/dL (0.6-1.3); POTASSIUM 3.5 mmol/L (3.5-5.1)
--- NOTE | 2020-11-08 06:57 | NUR ---
RN CLOSING NOTES PATIENT IN BED RESTING, AWAKE AND RESPONSIVE A,O X1-2, OPENS EYES WHEN CALLED BY NAME. ON T PIECE AT 5L 28% TO COOL AEROSOL, NO RESPIRATORY DISTRESS OR SOB NOTED. O2 SATURATIONS ABOVE 96%. IV LINE ON RAC #22 INTACT AND PATENT, IVF OF 1/2 NS 83ML/HR INFUSING WELL. G TUBE FEEDING JEVITY 1.2, RUNNING AT 55ML/ HR, TOLERATING WELL. NO PAIN OR DISCOMFORT REPORTED. ALL DUE MEDS GIVEN AND TOLERATED WELL. PT REPOSITIONED NEEDED FOR COMFORT. SAFETY MEASURES IN PLACE. BED LOWEST POSITION, CALL LIGHT WITHIN REACH, BED RAILS UP X3, BED ALARM. NO ACUTE DISTRESS NOTED AT THIS TIME. WILL ENDORSE DAMON TO DAY SHIFT RN.
--- NOTE | 2020-11-08 07:10 | NUR ---
RN OPENING NOTES RECEIVED PT, AWAKE, A/O X1-2. OPENS EYES. ON T PIECE AT 5L 28% COOL AEROSOL. NO SOB OR ANY S/S OF RESPIRATORY DISTRESS OR SOB NOTED, SATURATING @96%. IV ACCESS ON R AC #22 INTACT AND PATENT. IVF OF 1/2 NS @83ML/HR INFUSING WELL. G TUBE AUSCULTATED FOR POSITIVE PLACEMENT. FEEDING OF JEVITY 1.2 RUNNING AT 55ML/ HR, TOLERATING WELL. NO RESIDUALS NOTED. SAFETY MEASURES IN PLACE. CALL LIGHT WITHIN REACH. BED LOCKED AND IN LOWEST POSITION WITH SIDE RAILS UP X3. BED ALARM ON. WILL CONTINUE TO MONITOR.
[2020-11-08 08:00] VITALS: BP 117/66
[2020-11-08] MEDS: ASPIRIN EC 81 MG TABLET.DR PO SCH (08:49)
[2020-11-08] MEDS: PANTOPRAZOLE 40 MG TABLET.DR PO SCH (08:49)
[2020-11-08] MEDS: FOLIC ACID 1 MG TABLET PO SCH (08:50)
[2020-11-08] MEDS: ASCORBIC ACID 500 MG TABLET PO SCH (08:50)
[2020-11-08] MEDS: FERROUS SULFATE UDC 300 MG/5 ML UDC PO SCH (08:50)
[2020-11-08] MEDS: JEVITY 1.2 CAL 1,000 ML BOTTLE GT PRN (09:05)
[2020-11-08] MEDS: CALCITONIN,SALMON,SYNTHETIC 3.7 ML SPRAY.PUMP NS SCH (09:06)
[2020-11-08 12:00] VITALS: BP 99/57
[2020-11-08 16:00] VITALS: BP 95/56
--- NOTE | 2020-11-08 18:16 | NUR ---
RN NOTES BLOOD SUGAR OF 112, NO INSULIN COVERAGE.
--- NOTE | 2020-11-08 19:10 | NUR ---
RN CLOSING NOTES NO SIGNIFICANT CHANGES THROUGHOUT THE SHIFT. NO SOB OR ANY PAIN REPORTED. ALL DUE MEDS GIVEN. NEEDS ATTENDED. KEPT CLEAN AND DRY. RESTING COMFORTABLY IN BED. ENDORSED TO NIGHT RN FOR DAMON.
--- NOTE | 2020-11-08 19:29 | NUR ---
RN NOTE PATIENT ALERT AND ORIENTED X1-2. OPENS EYES. ON T PIECE AT 5L 28% COOL AEROSOL. NO SOB OR ANY S/S OF RESPIRATORY DISTRESS. IV ACCESS ON RIGHT AC #22 INTACT AND PATENT. G TUBE AUSCULTATED FOR POSITIVE PLACEMENT. FEEDING OF JEVITY 1.2 RUNNING AT 55ML/ HR, TOLERATING WELL. NO RESIDUAL NOTED. SAFETY MEASURES IN PLACE. CALL LIGHT WITHIN REACH. BED LOCKED AND IN LOWEST POSITION WITH SIDE RAILS UP X3. BED ALARM ON. ALL NEEDS ANTICIPATED.
[2020-11-08 20:00] VITALS: BP 106/65
[2020-11-08] MEDS: ENOXAPARIN SODIUM 40 MG/0.4 ML DISP.SYRIN SQ SCH (21:28)
[2020-11-08] MEDS: LOSARTAN POTASSIUM 50 MG TABLET GT SCH (21:28)
--- NOTE | 2020-11-08 21:46 | NUR ---
RECEIVED CLARIFICATION ORDER FROM DELMAR RODRIGUEZ FOR COZAAR 50 MG HOLD IF SBP < 100. NOTED AND CARRIED OUT.
[2020-11-09] VITALS: BP 91/50
[2020-11-09] MEDS: BLOOD SUGAR DIAGNOSTIC 1 EACH STRIP IN SCH ×4 (00:05→17:18)
[2020-11-09] MEDS: INSULIN REGULAR, HUMAN 100 UNIT/ML 3 ML VIAL SQ PRN ×2 (00:08→05:24)
[2020-11-09] MEDS: COLISTIMETHATE SODIUM 150 MG in IV NS 0.9% 50 ML IV SCH ×2 (02:12→12:34)
[2020-11-09 04:00] VITALS: BP 92/55
[2020-11-09 06:29] LABS: BASOPHILS # (AUTO) 0.1 K/uL (0.0-0.2); BASOPHILS % (AUTO) 0.9 % (0.0-2.0); EOSINOPHILS % (AUTO) 6.3 % (0.0-6.0); HEMATOCRIT 31 % (39-51); HEMOGLOBIN 9.7 g/dL (13.5-17.5); LYMPHOCYTES # (AUTO) 1.2 K/uL (0.8-4.8); LYMPHOCYTES % (AUTO) 8.7 % (20.0-44.0); MEAN CORPUSCULAR HGB CONC 31 g/dl (31.0-36.0); MEAN CORPUSCULAR VOLUME 88 fL (80-96); MONOCYTES % (AUTO) 7.1 % (2.0-12.0); NEUTROPHILS # (AUTO) 10.5 K/uL (1.8-8.9); PLATELET COUNT (AUTO) 348 K/uL (150-450); RED BLOOD CELL COUNT(AUTO) 3.57 MIL/uL (4.5-6.0); WHITE BLOOD COUNT (AUTO) 13.7 K/uL (4.3-11.0)
[2020-11-09] MEDS: JEVITY 1.2 CAL 1,000 ML BOTTLE GT PRN (06:29)
[2020-11-09 06:55] LABS: CREATININE 0.9 mg/dL (0.6-1.3); POTASSIUM 3.6 mmol/L (3.5-5.1)
[2020-11-09 06:57] LABS: CALCIUM, SERUM 13.1 mg/dL (8.5-10.1)
--- NOTE | 2020-11-09 07:09 | NUR ---
RN NOTE PATIENT ALERT AND ORIENTED X1-2. ON T PIECE AT 5L 28% COOL AEROSOL. NO SOB OR ANY S/S OF RESPIRATORY DISTRESS. IV ACCESS ON RIGHT AC #22 INTACT AND PATENT RUNNING 1/2 NS @75ML/HR. FEEDING OF JEVITY 1.2 RUNNING AT 55ML/ HR, TOLERATING WELL. NO RESIDUAL NOTED. SAFETY MEASURES IN PLACE. WITH CRITICAL LAB CALCIUM 13.1, NOTIFIED DELMAR RODRIGUEZ WITH ORDERS TO FOLLOW UP WITH ONCO AND NEPHRO. CALL LIGHT WITHIN REACH. BED LOCKED AND IN LOWEST POSITION WITH SIDE RAILS UP X3. BED ALARM ON. WILL ENDORSE TO AM SHIFT. Addendum: 11/09/20 at 0716 by TENISHA TROY RN PATIENT IV ACCESS IS SALINE LOCK, NO IV FLUIDS RUNNING. Addendum: 11/09/20 at 0727 by TENISHA TROY RN IV ACCESS IS RIGHT WRIST #22, NOT RIGHT AC #22.
--- NOTE | 2020-11-09 07:20 | NUR ---
RN OPENING NOTE PATIENT ALERT AND ORIENTED X1-2. ON T PIECE AT 5L 28% COOL AEROSOL. NO SOB OR ANY S/S OF RESPIRATORY DISTRESS. IV ACCESS ON RIGHT AC #22 INTACT AND PATENT RUNNING 1/2 NS @75ML/HR. FEEDING OF JEVITY 1.2 RUNNING AT 55ML/ HR, TOLERATING WELL. NO RESIDUAL NOTED. SAFETY MEASURES IN PLACE. CALL LIGHT WITHIN REACH AND ANSWERED PROMPTLY. BED LOCKED AND IN LOWEST POSITION WITH SIDE RAILS UP X3. BED ALARM ON
[2020-11-09 08:00] VITALS: BP 97/59
[2020-11-09] MEDS: ASCORBIC ACID 500 MG TABLET PO SCH (09:03)
[2020-11-09] MEDS: ASPIRIN EC 81 MG TABLET.DR PO SCH (09:03)
[2020-11-09] MEDS: FOLIC ACID 1 MG TABLET PO SCH (09:03)
[2020-11-09] MEDS: CALCITONIN,SALMON,SYNTHETIC 3.7 ML SPRAY.PUMP NS SCH (09:03)
[2020-11-09] MEDS: FERROUS SULFATE UDC 300 MG/5 ML UDC PO SCH (09:03)
[2020-11-09] MEDS: PANTOPRAZOLE 40 MG TABLET.DR PO SCH (09:05)
[2020-11-09 12:00] VITALS: BP 95/61
[2020-11-09] MEDS ORDERED: PAMIDRONATE 90 MG in IV NS 0.9% 500 ML IV ONE (12:00)
[2020-11-09 16:00] VITALS: BP 95/61
--- NOTE | 2020-11-09 19:31 | NUR ---
RN NOTE PATIENT ALERT AND ORIENTED X1-2. ON T PIECE AT 5L 28% COOL AEROSOL. NO SOB OR ANY S/S OF RESPIRATORY DISTRESS. IV ACCESS ON RIGHT AC #22 INTACT AND PATENT. FEEDING OF JEVITY 1.2 RUNNING AT 55ML/ HR, TOLERATING WELL. NO RESIDUAL NOTED. SAFETY MEASURES IN PLACE. CALL LIGHT WITHIN REACH. BED LOCKED AND IN LOWEST POSITION WITH SIDE RAILS UP X3. ALL NEEDS ANTICIPATED.
[2020-11-09 20:00] VITALS: BP 125/57
[2020-11-09] MEDS: LOSARTAN POTASSIUM 50 MG TABLET GT SCH (21:28)
[2020-11-09] MEDS: ENOXAPARIN SODIUM 40 MG/0.4 ML DISP.SYRIN SQ SCH (21:29)
[2020-11-10] VITALS: BP 92/63
[2020-11-10] MEDS: BLOOD SUGAR DIAGNOSTIC 1 EACH STRIP IN SCH ×4 (00:20→18:04)
[2020-11-10] MEDS: INSULIN REGULAR, HUMAN 100 UNIT/ML 3 ML VIAL SQ PRN ×3 (00:23→11:46)
[2020-11-10] MEDS: COLISTIMETHATE SODIUM 150 MG in IV NS 0.9% 50 ML IV SCH ×2 (02:13→13:42)
[2020-11-10 04:00] VITALS: BP 103/62
--- NOTE | 2020-11-10 07:01 | NUR ---
RN NOTE PATIENT ALERT AND ORIENTED X1-2. ON T PIECE AT 5L 28% COOL AEROSOL. NO SOB OR ANY S/S OF RESPIRATORY DISTRESS. IV ACCESS ON RIGHT AC #22 INTACT AND PATENT. JEVITY 1.2 RUNNING AT 55ML/ HR, TOLERATING WELL. NO RESIDUAL NOTED. TOLERATED BED BATH WELL, TURNED AND REPOSITIONED Q2H. ALL DUE MEDS GIVEN ORDERED. SAFETY MEASURES IN PLACE. CALL LIGHT WITHIN REACH. BED LOCKED AND IN LOWEST POSITION WITH SIDE RAILS UP X3. WILL ENDORSE TO AM SHIFT.
[2020-11-10 07:05] LABS: BASOPHILS # (AUTO) 0.1 K/uL (0.0-0.2); EOSINOPHILS % (AUTO) 4.8 % (0.0-6.0); HEMATOCRIT 31 % (39-51); HEMOGLOBIN 9.7 g/dL (13.5-17.5); LYMPHOCYTES # (AUTO) 1.4 K/uL (0.8-4.8); MEAN CORPUSCULAR HGB CONC 31 g/dl (31.0-36.0); MEAN CORPUSCULAR VOLUME 88 fL (80-96); MONOCYTES % (AUTO) 7.1 % (2.0-12.0); NEUTROPHILS % (AUTO) 77.1 % (43.0-81.0); PLATELET COUNT (AUTO) 348 K/uL (150-450); RED BLOOD CELL COUNT(AUTO) 3.55 MIL/uL (4.5-6.0); WHITE BLOOD COUNT (AUTO) 14.3 K/uL (4.3-11.0)
[2020-11-10 07:27] LABS: POTASSIUM 3.9 mmol/L (3.5-5.1)
--- NOTE | 2020-11-10 07:30 | NUR ---
RN OPENING NOTE PT A/Ox1-2, SEMIFOWLER'S IN BED. ON T PIECE AT 5L, 28% COOL AEROSOL. NO S/S OF SOB OR RESP DISTRESS, BREATHING EVEN AND UNLABORED. PT IV ACCESS ON RIGHT WRIST #22 FLUSHED, INTACT AND PATENT. GT FEED OF JEVITY 1.2 RUNNING AT 55ML/ HR, AUSCULTATED FOR POSITIVE PLACEMENT, NO RESIDUALS NOTED, TOLERATING WELL. PT LT NECK CARCINOMA COVERED IN C/D/I DRSG, SACRAL REDNESS NOTED, OFFLOADING. ALL PT SAFETY MEASURES IN PLACE. CALL LIGHT WITHIN REACH. BED LOCKED AND IN LOWEST POSITION WITH SIDE RAILS UP X3. WILL CONT TO MONITOR
[2020-11-10 07:32] LABS: CALCIUM, SERUM 13.6 mg/dL (8.5-10.1)
[2020-11-10 08:00] VITALS: BP 105/54
--- NOTE | 2020-11-10 08:00 | NUR ---
RN NOTE DR MCCARTHY INFORMED OF PT CA LEVEL OF 13.6
[2020-11-10] MEDS: ASPIRIN EC 81 MG TABLET.DR PO SCH (08:23)
[2020-11-10] MEDS: PANTOPRAZOLE 40 MG TABLET.DR PO SCH (08:23)
[2020-11-10] MEDS: FERROUS SULFATE UDC 300 MG/5 ML UDC PO SCH (08:23)
[2020-11-10] MEDS: ASCORBIC ACID 500 MG TABLET PO SCH (08:23)
[2020-11-10] MEDS: FOLIC ACID 1 MG TABLET PO SCH (08:23)
[2020-11-10] MEDS: CALCITONIN,SALMON,SYNTHETIC 3.7 ML SPRAY.PUMP NS SCH (08:24)
--- NOTE | 2020-11-10 08:30 | NUR ---
RN NOTE PER DR MCCARTHY, RESUME PT ON 05/13 NS @ 100 ML/HR Addendum: 11/10/20 at 1925 by THAIS RAMIREZ RN DR ALBERT IN AGREEMENT WITH 2 @ 100 ML/HR
[2020-11-10 12:00] VITALS: BP 85/49
[2020-11-10] MEDS: HYDROCODONE/APAP 5/325MG TABLET PO PRN (13:42)
[2020-11-10] MEDS: IV 1/2NS 1000 ML 1,000 ML IV PRN (13:55)
[2020-11-10] MEDS: JEVITY 1.2 CAL 1,000 ML BOTTLE GT PRN (15:53)
[2020-11-10 16:00] VITALS: BP 90/53
--- NOTE | 2020-11-10 19:10 | NUR ---
RN CLOSING NOTE NO CHANGES TO PT DURING SHIFT, PT IS STABLE. FREQUENT SUCTIONING OF PT REQUIRED. CONT TO TREAT HYPERCALCEMIA. ALL PT SAFETY PRECAUTIONS IN PLACE. DAMON ENDORSED TO RN
--- NOTE | 2020-11-10 19:45 | NUR ---
RN NOTE RECEIVED PT IN BED, SLEEPING, AROUSES EASILY. NO SIGNS OF PAIN NOR DISCOMFORT. ON TELE MONITORING SHOWS SR WITH HR OF 80. GT IN PLACE AND PATENT, ON GT FEEDING OF JEVITY 1.2 AT 55ML/HR,MINIMAL RESIDUAL NOTED. KEPT HOB ELEVATED. WILL CONTINUE TO MONITOR. ALL SAFETY MEASURES IN PLACE PER PROTOCOL, CALL LIGHT WITHIN REACH, BED LOCKED IN LOWEST POSITION, SIDE RAILS UP.
[2020-11-10 20:00] VITALS: BP 106/57
[2020-11-10] MEDS: ENOXAPARIN SODIUM 40 MG/0.4 ML DISP.SYRIN SQ SCH (21:58)
[2020-11-10] MEDS: LOSARTAN POTASSIUM 50 MG TABLET GT SCH (22:00)
[2020-11-11] VITALS: BP 95/57
[2020-11-11] MEDS: BLOOD SUGAR DIAGNOSTIC 1 EACH STRIP IN SCH ×4 (00:07→17:17)
[2020-11-11] MEDS: INSULIN REGULAR, HUMAN 100 UNIT/ML 3 ML VIAL SQ PRN ×4 (00:10→17:19)
[2020-11-11] MEDS: IV 1/2NS 1000 ML 1,000 ML IV PRN ×2 (02:21→14:30)
[2020-11-11 04:00] VITALS: BP 107/69
[2020-11-11 06:59] LABS: BASOPHILS # (AUTO) 0.1 K/uL (0.0-0.2); BASOPHILS % (AUTO) 0.7 % (0.0-2.0); EOSINOPHILS % (AUTO) 7.9 % (0.0-6.0); HEMATOCRIT 33 % (39-51); LYMPHOCYTES # (AUTO) 1.3 K/uL (0.8-4.8); LYMPHOCYTES % (AUTO) 9.8 % (20.0-44.0); MEAN CORPUSCULAR HGB CONC 30 g/dl (31.0-36.0); MEAN CORPUSCULAR VOLUME 89 fL (80-96); MONOCYTES # (AUTO) 0.8 K/uL (0.1-1.30); MONOCYTES % (AUTO) 6.1 % (2.0-12.0); NEUTROPHILS # (AUTO) 9.6 K/uL (1.8-8.9); NEUTROPHILS % (AUTO) 75.5 % (43.0-81.0); PLATELET COUNT (AUTO) 320 K/uL (150-450); RED BLOOD CELL COUNT(AUTO) 3.71 MIL/uL (4.5-6.0); WHITE BLOOD COUNT (AUTO) 12.8 K/uL (4.3-11.0)
--- NOTE | 2020-11-11 07:00 | NUR ---
RN NOTE PT REMAIN IN BED, TOLERATING COOL AEROSOL AT 5L. NO SIGNS OF DISTRESS NOTED. O2 SAT AT 99%. KEPT HOB ELEVATED. PT TOLERATING GT FEEDING, NO S/SX OF ASPIRATION NOTED. FLUSHES WITH WATER ORDERED. CONTINUE ON IVF 1/2 NS AT 100 ML/HR. NO SIGNS OF INFILTRATION. ALL SAFETY MEASURES IN PLACE, WILL ENDORSE TO NEXT SHIFT NURSE FOR DAMON.
--- NOTE | 2020-11-11 07:30 | NUR ---
RN AM NOTE PATIENT ALERT AND ORIENTED X1-2. ON T PIECE AT 5L 28% COOL AEROSOL. NO SOB OR ANY S/S OF RESPIRATORY DISTRESS. IV ACCESS ON RIGHT AC #22 INTACT AND PATENT RUNNING 1/2 NS @75ML/HR. FEEDING OF JEVITY 1.2 RUNNING AT 55ML/ HR, 0 RESIDUAL, PLACEMENT CHECKED. TOLERATING WELL. SAFETY MEASURES IN PLACE. CALL LIGHT WITHIN REACH AND ANSWERED PROMPTLY. BED LOCKED AND IN LOWEST POSITION WITH SIDE RAILS UP X3. BED ALARM ON
[2020-11-11 07:33] LABS: CALCIUM, SERUM 12.8 mg/dL (8.5-10.1); POTASSIUM 4.4 mmol/L (3.5-5.1)
[2020-11-11] MEDS: JEVITY 1.2 CAL 1,000 ML BOTTLE GT PRN (07:40)
[2020-11-11 08:00] VITALS: BP 114/67
[2020-11-11] MEDS: FERROUS SULFATE UDC 300 MG/5 ML UDC PO SCH (08:57)
[2020-11-11] MEDS: PANTOPRAZOLE 40 MG TABLET.DR PO SCH (08:57)
[2020-11-11] MEDS: ASCORBIC ACID 500 MG TABLET PO SCH (08:58)
[2020-11-11] MEDS: ASPIRIN EC 81 MG TABLET.DR PO SCH (08:58)
[2020-11-11] MEDS: CALCITONIN,SALMON,SYNTHETIC 3.7 ML SPRAY.PUMP NS SCH (08:58)
[2020-11-11] MEDS: FOLIC ACID 1 MG TABLET PO SCH (08:58)
--- NOTE | 2020-11-11 09:30 | NUR ---
RN NOTES DUE MEDS GIVEN.
[2020-11-11 12:00] VITALS: BP 93/54
[2020-11-11 16:00] VITALS: BP 99/65
--- NOTE | 2020-11-11 18:55 | NUR ---
RN CLOSING NOTE PT IN BED, RESTING COMFORTABLY, TOLERATING COOL AEROSOL AT 5L. NO SIGNS OF DISTRESS NOTED. O2 SAT AT 99%. HOB ELEVATED. PT TOLERATING GT FEEDING, NO S/SX OF ASPIRATION NOTED. WATER FLUSH ORDERED. IVF 1/2 NS RUNNING AT 100 ML/HR. SITE CLEAR. SAFETY MEASURES IN PLACE, ALL NEEDS MET. PM CARE DONE, TURNED AND REPOSITIONED. WILL ENDORSE TO NEXT SHIFT NURSE FOR DAMON.
[2020-11-11 20:00] VITALS: BP 98/51
--- NOTE | 2020-11-11 20:00 | NUR ---
HEAT TREAT FURNACE OPERATOR NOTE PATIENT ALERT AND ORIENTED X1-2. ON T PIECE AT 5L 28% COOL AEROSOL. NO SOB NO DISTRESS NOTED .OR ANY S/S OF RESPIRATORY DISTRESS. IV ACCESS ON RIGHT AC #22 INTACT AND PATENT. FEEDING OF JEVITY 1.2 RUNNING AT 55ML/ HR, TOLERATING WELL. NO RESIDUAL NOTED. V/S STABLE AFEBRILE DENIES PAIN NO FACIAL GRIMACES NOTED SAFETY MEASURES IN PLACE. CALL LIGHT WITHIN REACH. BED LOCKED AND IN LOWEST POSITION WITH SIDE RAILS UP X3. ALL NEEDS ANTICIPATED.WILL CONTINUE TO MONITOR PTS.
--- NOTE | 2020-11-11 21:00 | NUR ---
GAS METER REPAIR SUPERVISOR NOTES SEEN AND EXAMINED BY DR DURON AT BEDSIDE WITH NNO AT THIS TIME.
--- NOTE | 2020-11-11 21:28 | NUR ---
OPTIC FIBRE DRAWER NOTES ANGELICA PERERA D/T LOW BP MD MADE AWARE WITH NNO.
[2020-11-11] MEDS: ENOXAPARIN SODIUM 40 MG/0.4 ML DISP.SYRIN SQ SCH (21:57)
[2020-11-11] MEDS: LOSARTAN POTASSIUM 50 MG TABLET GT SCH (22:00)
[2020-11-12] VITALS: BP 96/57
[2020-11-12] MEDS: INSULIN REGULAR, HUMAN 100 UNIT/ML 3 ML VIAL SQ PRN ×3 (00:05→17:25)
[2020-11-12] MEDS: BLOOD SUGAR DIAGNOSTIC 1 EACH STRIP IN SCH ×4 (00:06→17:27)
[2020-11-12] MEDS: JEVITY 1.2 CAL 1,000 ML BOTTLE GT PRN ×2 (00:56→18:52)
[2020-11-12 04:00] VITALS: BP 97/45
[2020-11-12] MEDS: IV 1/2NS 1000 ML 1,000 ML IV PRN ×2 (07:05→17:27)
[2020-11-12 07:14] LABS: BASOPHILS # (AUTO) 0.1 K/uL (0.0-0.2); BASOPHILS % (AUTO) 0.9 % (0.0-2.0); EOSINOPHILS % (AUTO) 7.7 % (0.0-6.0); HEMATOCRIT 26 % (39-51); HEMOGLOBIN 8.3 g/dL (13.5-17.5); LYMPHOCYTES # (AUTO) 1.2 K/uL (0.8-4.8); LYMPHOCYTES % (AUTO) 10.4 % (20.0-44.0); MEAN CORPUSCULAR HGB CONC 32 g/dl (31.0-36.0); MEAN CORPUSCULAR VOLUME 88 fL (80-96); MONOCYTES # (AUTO) 0.9 K/uL (0.1-1.30); MONOCYTES % (AUTO) 8.3 % (2.0-12.0); NEUTROPHILS % (AUTO) 72.7 % (43.0-81.0); PLATELET COUNT (AUTO) 280 K/uL (150-450); RED BLOOD CELL COUNT(AUTO) 2.99 MIL/uL (4.5-6.0); WHITE BLOOD COUNT (AUTO) 11.1 K/uL (4.3-11.0)
[2020-11-12 07:25] LABS: CALCIUM, SERUM 11.7 mg/dL (8.5-10.1); POTASSIUM 4.2 mmol/L (3.5-5.1)
[2020-11-12 08:00] VITALS: BP 95/46
--- NOTE | 2020-11-12 08:00 | NUR ---
GUIDANCE AND CONTROL SYSTEM ENGINEER NOTE PATIENT IN BED RESTING COMFORTABLY IN BED WITH TRACH TO T PC 5L 28% TO COOLER AEROSOL, ON TELE MONITOR SR HR 78 , WITH DRESSING LT NECK IN PLACE WITH G TUBE FEEDING ORDERED KEEP HOB ELEVATED TOLERATED, NO RESIDUAL NOTED , RT WRIST HL INTACT ,ON IVF ORDERED DR MCCARTHY AT BEDSIDE NOTIFIED ABOUT BP 95/46 AND CONT IVF ORDERED ,BED IN LOWEST AND LOCKED POSITING , CALL LIGHT WITHIN REACH , WILL CONT TO MONITOR CLOSELY
[2020-11-12] MEDS: ASPIRIN EC 81 MG TABLET.DR PO SCH (08:43)
[2020-11-12] MEDS: FOLIC ACID 1 MG TABLET PO SCH (08:43)
[2020-11-12] MEDS: ASCORBIC ACID 500 MG TABLET PO SCH (08:44)
[2020-11-12] MEDS: CALCITONIN,SALMON,SYNTHETIC 3.7 ML SPRAY.PUMP NS SCH (08:44)
[2020-11-12] MEDS: FERROUS SULFATE UDC 300 MG/5 ML UDC PO SCH (08:44)
[2020-11-12] MEDS: PANTOPRAZOLE 40 MG TABLET.DR PO SCH (08:44)
[2020-11-12 12:00] VITALS: BP 96/51
--- NOTE | 2020-11-12 12:01 | NUR ---
WET POUR SUPERVISOR NOTE PER DR SEO OK TO CONT FLUSH G TUBE WITH 200 ML
[2020-11-12] MEDS: MIDODRINE HCL (5MG) 5 MG TABLET PO SCH ×2 (12:11→16:24)
--- NOTE | 2020-11-12 15:00 | NUR ---
BUTTON SEWER NOTE TRACH CARE DONE SUCTION DONE WITH MOD AMT OF SECRETION OBTAINED
[2020-11-12 16:00] VITALS: BP 102/59
--- NOTE | 2020-11-12 18:03 | NUR ---
QUANTITATIVE ANALYST NOTE NEW HL ON LT AC CHRISTINA 22 INSERTED WITH GOOD BLOOD RETURN
--- NOTE | 2020-11-12 18:28 | NUR ---
COMMAND AND CONTROL OFFICER NOTE PATIENT IN BED ALERT WITH CONFUSION , WITH TRACH TO T PC 28% 5L SATURATION 96%, ON TELE MONITOR SR , ON G TUBE FEEDING ORDERED ,KEEP HOB ELEVATED AT ALL TIME, ON IVF ORDERED , WITH TRACH SUCTION DONE, WILL CONT TO MONITOR CLOSELY
[2020-11-12 20:00] VITALS: BP 104/59
[2020-11-12] MEDS: ENOXAPARIN SODIUM 40 MG/0.4 ML DISP.SYRIN SQ SCH (20:36)
[2020-11-12] MEDS: LOSARTAN POTASSIUM 50 MG TABLET GT SCH (21:34)
[2020-11-13] VITALS: BP 107/61
[2020-11-13] MEDS: BLOOD SUGAR DIAGNOSTIC 1 EACH STRIP IN SCH ×4 (00:19→17:04)
[2020-11-13] MEDS: INSULIN REGULAR, HUMAN 100 UNIT/ML 3 ML VIAL SQ PRN ×3 (00:19→12:41)
[2020-11-13 04:00] VITALS: BP 111/58
[2020-11-13] MEDS: IV 1/2NS 1000 ML 1,000 ML IV PRN ×2 (05:21→15:00)
[2020-11-13 06:33] LABS: BASOPHILS # (AUTO) 0.1 K/uL (0.0-0.2); BASOPHILS % (AUTO) 1.1 % (0.0-2.0); EOSINOPHILS % (AUTO) 5.1 % (0.0-6.0); HEMATOCRIT 27 % (39-51); HEMOGLOBIN 8.5 g/dL (13.5-17.5); LYMPHOCYTES % (AUTO) 8.3 % (20.0-44.0); MEAN CORPUSCULAR HGB CONC 32 g/dl (31.0-36.0); MEAN CORPUSCULAR VOLUME 86 fL (80-96); MONOCYTES # (AUTO) 0.7 K/uL (0.1-1.30); MONOCYTES % (AUTO) 6.4 % (2.0-12.0); NEUTROPHILS # (AUTO) 9.2 K/uL (1.8-8.9); NEUTROPHILS % (AUTO) 79.1 % (43.0-81.0); PLATELET COUNT (AUTO) 305 K/uL (150-450); RED BLOOD CELL COUNT(AUTO) 3.12 MIL/uL (4.5-6.0); WHITE BLOOD COUNT (AUTO) 11.6 K/uL (4.3-11.0)
--- NOTE | 2020-11-13 07:04 | NUR ---
RN NOTES, BLOOD SUGAR 116MG/DL AND NO NO INSULIN PER SLIDING SLIDE COVERAGE.
[2020-11-13 07:12] LABS: ALBUMIN 1.5 g/dL (3.4-5.0); CALCIUM, SERUM 11.5 mg/dL (8.5-10.1); CREATININE 0.9 mg/dL (0.6-1.3); POTASSIUM 4.4 mmol/L (3.5-5.1)
--- NOTE | 2020-11-13 07:30 | NUR ---
RN AM NOTE PATIENT ALERT AND ORIENTED X1-2. ON T PIECE AT 5L 28% COOL AEROSOL. NO SOB OR ANY S/S OF RESPIRATORY DISTRESS. IV ACCESS ON RIGHT AC #22 FLUSHES WELL. LEFT AC WITH IV RUNNING 1/2 NS @75ML/HR. BOTH SITES CLEAR. FEEDING OF JEVITY 1.2 RUNNING AT 55ML/ HR, 0 RESIDUAL, PLACEMENT CHECKED. TOLERATING WELL. SAFETY MEASURES IN PLACE. CALL LIGHT WITHIN REACH.BED LOCKED AND IN LOWEST POSITION WITH SIDE RAILS UP X3. BED ALARM ON. WILL PERFORM PRESCRIBED WOUND TREATMENT IN A WHILE. WILL TURN AND REPOSITION Q [address] ME[address] PL[address]. WILL CONTINUE TO MONITOR.
[2020-11-13 08:00] VITALS: BP 91/55
[2020-11-13] MEDS: FOLIC ACID 1 MG TABLET PO SCH (08:29)
[2020-11-13] MEDS: ASPIRIN EC 81 MG TABLET.DR PO SCH (08:29)
[2020-11-13] MEDS: FERROUS SULFATE UDC 300 MG/5 ML UDC PO SCH (08:29)
[2020-11-13] MEDS: PANTOPRAZOLE 40 MG TABLET.DR PO SCH (08:29)
[2020-11-13] MEDS: ASCORBIC ACID 500 MG TABLET PO SCH (08:29)
[2020-11-13] MEDS: MIDODRINE HCL (5MG) 5 MG TABLET PO SCH ×3 (08:31→17:30)
[2020-11-13] MEDS: CALCITONIN,SALMON,SYNTHETIC 3.7 ML SPRAY.PUMP NS SCH (09:06)
--- NOTE | 2020-11-13 09:30 | NUR ---
RN NOTES DUE MEDS GIVEN.
[2020-11-13 12:00] VITALS: BP 100/61
[2020-11-13] MEDS: JEVITY 1.2 CAL 1,000 ML BOTTLE GT PRN (15:01)
[2020-11-13 16:00] VITALS: BP 104/66
--- NOTE | 2020-11-13 19:30 | NUR ---
RN NOTE RECEIVED PATIENT IN BED. A/O X1-2. ON OXYGEN 5L.MIN VIA T-PIECE. RESPIRATIONS ARE EVEN AND UNLABORED. NO S/S SOB NOTED. NO S/S PAIN NOTED. EXTERNAL TELE MONITOR READ SINUS RHYTHM. IN NO APPARENT DISTRESS. IV ACCESS IN RIGHT WRIST #22 , INFILTRATED AND REMOVED. LAC#22 RUNNING 1/2 NS@100ML/HR. GTUBE IS PRESENT, NO RESIDUAL, RUNNING JEVITY @55ML/HR. BED IS LOW AND LOCKED, HOB ELEVATED IN SEMI FOWLERS, SIDE RIALS UP X2, CALL LIGHT WITHIN REACH. WILL CONTINUE TO MONITOR THROUGHOUT SHIFT.
[2020-11-13 20:00] VITALS: BP 117/69
[2020-11-13] MEDS: ENOXAPARIN SODIUM 40 MG/0.4 ML DISP.SYRIN SQ SCH (20:23)
[2020-11-13] MEDS: LOSARTAN POTASSIUM 50 MG TABLET GT SCH (21:03)
[2020-11-14] VITALS: BP 102/70
[2020-11-14] MEDS: BLOOD SUGAR DIAGNOSTIC 1 EACH STRIP IN SCH ×4 (00:01→18:08)
[2020-11-14] MEDS: INSULIN REGULAR, HUMAN 100 UNIT/ML 3 ML VIAL SQ PRN ×4 (00:03→18:36)
[2020-11-14 04:00] VITALS: BP 116/64
[2020-11-14] MEDS: IV 1/2NS 1000 ML 1,000 ML IV PRN (04:24)
[2020-11-14 07:40] LABS: BASOPHILS # (AUTO) 0.3 K/uL (0.0-0.2); EOSINOPHILS % (AUTO) 5.2 % (0.0-6.0); HEMATOCRIT 32 % (39-51); HEMOGLOBIN 10.2 g/dL (13.5-17.5); LYMPHOCYTES # (AUTO) 0.9 K/uL (0.8-4.8); LYMPHOCYTES % (AUTO) 9.9 % (20.0-44.0); MEAN CORPUSCULAR HGB CONC 32 g/dl (31.0-36.0); MEAN CORPUSCULAR VOLUME 85 fL (80-96); MONOCYTES # (AUTO) 0.6 K/uL (0.1-1.30); MONOCYTES % (AUTO) 6.3 % (2.0-12.0); NEUTROPHILS # (AUTO) 7.1 K/uL (1.8-8.9); NEUTROPHILS % (AUTO) 75.6 % (43.0-81.0); PLATELET COUNT (AUTO) 386 K/uL (150-450); RED BLOOD CELL COUNT(AUTO) 3.75 MIL/uL (4.5-6.0); WHITE BLOOD COUNT (AUTO) 9.4 K/uL (4.3-11.0)
[2020-11-14 07:44] LABS: CALCIUM, SERUM 11.8 mg/dL (8.5-10.1); CREATININE 0.8 mg/dL (0.6-1.3); POTASSIUM 4.5 mmol/L (3.5-5.1)
--- NOTE | 2020-11-14 07:46 | NUR ---
RT PATIENT REC'D TRACHED ON C/A VIA T-PIECE 28%. AIRWAY SUCTIONED WITH MOD ENEDELIA VEGA SEMITHICK SECRETIONS. PATIENT AWAKE, ALERT, NO DISTRESS NOTED. Addendum: 11/14/20 at 0834 by JUAN FRANCISCO VIDAL RT Amended: Links added.
[2020-11-14 08:00] VITALS: BP 123/65
--- NOTE | 2020-11-14 08:00 | NUR ---
SCIENCE TECHNICIANS NOTE PATIENT IN BED , ALL NEEDS ATTENDED WITH TRACH TO T PIECE TO COLLER AEROSOL 28% SATURATION AT THIS TIME 99% ,TRACH CARE DONE ,NOTE BLOODY TINGE SECRETION LT SIDE OF NECK WITH DRESSING INTACT WITH G TUBE FEEDING ORDERED, KEEP HOB ELEVATED AT ALL TIME,NO RESIDUAL NOTED , RT AC HL INSERTEDBY RN NI GHT SHIFT WITH GOOD BLOOD RETURN , ON IVF ORDERED , BED IN LOWEST AND LOCKED POSITION , WILL MONITOR
[2020-11-14] MEDS: CALCITONIN,SALMON,SYNTHETIC 3.7 ML SPRAY.PUMP NS SCH (08:23)
[2020-11-14] MEDS: MIDODRINE HCL (5MG) 5 MG TABLET PO SCH ×3 (08:23→18:08)
[2020-11-14] MEDS: PANTOPRAZOLE 40 MG TABLET.DR PO SCH (08:24)
[2020-11-14] MEDS: FERROUS SULFATE UDC 300 MG/5 ML UDC PO SCH (08:24)
[2020-11-14] MEDS: ASCORBIC ACID 500 MG TABLET PO SCH (08:24)
[2020-11-14] MEDS: ASPIRIN EC 81 MG TABLET.DR PO SCH (08:24)
[2020-11-14] MEDS: FOLIC ACID 1 MG TABLET PO SCH (08:24)
--- NOTE | 2020-11-14 09:26 | NUR ---
MONUMENT STONECUTTER NOTE RT AC HL IS NOR WORKING WELL UNABLE TO REINSERT, TRIED X [address] BAEZ TO INSERT MID LINE ,NURSING DOMESTIC TRAVEL CONSULTANT AWARE
--- NOTE | 2020-11-14 10:00 | NUR ---
CARE ATTENDANT NOTE REPORTED TO DR ISSA ORTEGA WITH BLOODY DRAINAGE STATED ITS OK
[2020-11-14] MEDS ORDERED: Midodrine Hcl (5MG) PO (10:18)
[2020-11-14] MEDS ORDERED: FERR300L PO (10:18)
[2020-11-14] MEDS ORDERED: PANT40TA2 PO (10:18)
[2020-11-14] MEDS ORDERED: MIDO5TAB4 PO (10:19)
[2020-11-14 12:00] VITALS: BP 106/70
--- NOTE | 2020-11-14 12:00 | NUR ---
cable television access coordinator note called to snf for report but no bed available will await for bed director case notified
[2020-11-14] MEDS ORDERED: CELLULOSE,OXIDIZED 1 EACH EACH MC ONE (15:00)
--- NOTE | 2020-11-14 15:00 | NUR ---
RADIOLOGY MANAGER NOTE TX DONE ORDERED ON LT NECK PX DONE FOR DISCOURAGE STILL NO BED AVAILABLE ,
[2020-11-14 16:00] VITALS: BP 103/66
[2020-11-14] MEDS: JEVITY 1.2 CAL 1,000 ML BOTTLE GT PRN (17:48)
--- NOTE | 2020-11-14 18:55 | NUR ---
telescope operator note bed still not available for snf , called Sarah daughter aware that patient discharge when bed available from snf ,all needs attended not in distress
[2020-11-14 20:00] VITALS: BP 114/70
[2020-11-14] MEDS: ENOXAPARIN SODIUM 40 MG/0.4 ML DISP.SYRIN SQ SCH (23:19)
[2020-11-14] MEDS: LOSARTAN POTASSIUM 50 MG TABLET GT SCH (23:20)
[2020-11-15] VITALS: BP_SYST 105; BP_SYST 92; BP_DIAS 56; BP_DIAS 61
[2020-11-15] MEDS: HYDROCODONE/APAP 5/325MG TABLET PO PRN ×2 (00:16→06:45)
[2020-11-15 04:00] VITALS: BP 105/64
--- NOTE | 2020-11-15 05:25 | NUR ---
patient with t- piece at 28% 5liters sat 100% temp 97.4 chest with crakles suction thick secretions patient has a large mass on left side of neck change drsg with moderate pink drainage restart IV IN SAME ARM RIGHT LOWER ARM WITH 22GA PATIENT STILL HAS 20 GA IN UPPER ARM ONLY PATIENT WHEN PATIENT DOESNT BEND ARM. PATIENT SINUS ON MONITOR WT DONE WT 152LBS. PATIENTS GT. WAS PLUG AT BEGINING OF SHIFT UNPLUG GT RESUME JEVITY 1.2 AT 55 HR PAIENT C/O OF PAIN AFTER DRSGING CHANGE GIVEN 1 NORCO VIA .OF GT. PATIENT WENT TO SLEEP- AFTER MEDICATED. BLOOD SUGAR 119 NO INSULIN GIVEN.AT MID NITE.
[2020-11-15] MEDS: BLOOD SUGAR DIAGNOSTIC 1 EACH STRIP IN SCH ×5 (06:20→23:31)
--- NOTE | 2020-11-15 06:21 | NUR ---
blood sugar 129 no insulin given done at 0630
[2020-11-15] MEDS: INSULIN REGULAR, HUMAN 100 UNIT/ML 3 ML VIAL SQ PRN ×2 (06:48→23:37)
[2020-11-15 07:11] LABS: BASOPHILS # (AUTO) 0.1 K/uL (0.0-0.2); EOSINOPHILS % (AUTO) 6.9 % (0.0-6.0); HEMATOCRIT 27 % (39-51); HEMOGLOBIN 8.7 g/dL (13.5-17.5); LYMPHOCYTES # (AUTO) 0.9 K/uL (0.8-4.8); MEAN CORPUSCULAR HGB CONC 32 g/dl (31.0-36.0); MEAN CORPUSCULAR VOLUME 85 fL (80-96); MONOCYTES # (AUTO) 0.8 K/uL (0.1-1.30); MONOCYTES % (AUTO) 8.2 % (2.0-12.0); NEUTROPHILS # (AUTO) 7.4 K/uL (1.8-8.9); NEUTROPHILS % (AUTO) 74.9 % (43.0-81.0); PLATELET COUNT (AUTO) 399 K/uL (150-450); RED BLOOD CELL COUNT(AUTO) 3.17 MIL/uL (4.5-6.0); WHITE BLOOD COUNT (AUTO) 9.9 K/uL (4.3-11.0)
[2020-11-15 07:50] LABS: ALBUMIN 1.7 g/dL (3.4-5.0); BILIRUBIN,TOTAL 0.2 mg/dL (0.2-1.0); CALCIUM, SERUM 11.8 mg/dL (8.5-10.1); CREATININE 0.7 mg/dL (0.6-1.3); TOTAL PROTEIN, SERUM 7.4 g/dL (6.4-8.2)
[2020-11-15 08:00] VITALS: BP 111/75
[2020-11-15] MEDS: PANTOPRAZOLE 40 MG TABLET.DR PO SCH (08:02)
[2020-11-15 09:02] LABS: POTASSIUM 4.3 mmol/L (3.5-5.1)
[2020-11-15] MEDS ORDERED: PAMIDRONATE 90 MG in IV NS 0.9% 500 ML IV ONE (09:30)
[2020-11-15] MEDS: ASPIRIN EC 81 MG TABLET.DR PO SCH (09:59)
[2020-11-15] MEDS: FERROUS SULFATE UDC 300 MG/5 ML UDC PO SCH (09:59)
[2020-11-15] MEDS: CALCITONIN,SALMON,SYNTHETIC 3.7 ML SPRAY.PUMP NS SCH (09:59)
[2020-11-15] MEDS: FOLIC ACID 1 MG TABLET PO SCH (09:59)
[2020-11-15] MEDS: MIDODRINE HCL (5MG) 5 MG TABLET PO SCH ×3 (10:00→17:15)
[2020-11-15] MEDS: ASCORBIC ACID 500 MG TABLET PO SCH (10:00)
[2020-11-15 16:00] VITALS: BP 92/69
--- NOTE | 2020-11-15 16:31 | NUR ---
followup with cm still discharge pending r/t placement issue.
--- NOTE | 2020-11-15 19:45 | NUR ---
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
[2020-11-15 20:00] VITALS: BP 116/67
[2020-11-15] MEDS: ENOXAPARIN SODIUM 40 MG/0.4 ML DISP.SYRIN SQ SCH (21:15)
[2020-11-15] MEDS: LOSARTAN POTASSIUM 50 MG TABLET GT SCH (21:17)
--- NOTE | 2020-11-15 22:00 | NUR ---
MS1 RN NOTES EVENING CARE RENDERED WITH IVAN NAVA,DRESSING VHANGE DONE ON TRACH SITE,SUCTION MUCUS NEEDED.DRESSING CHANGE ALSO DONE TO LEFT NECK CARCINOMA.
[2020-11-15] MEDS: JEVITY 1.2 CAL 1,000 ML BOTTLE GT PRN (22:44)
--- NOTE | 2020-11-15 23:30 | NUR ---
MS1 RN NOTES ACCU-CHECK BLOOD SUGAR CHECK 138,COVERED WITH HUMULIN R 2 UNITS PER SLIDING SCALE.GT FEEDING IN PROGRESS.
[2020-11-16] VITALS: BP_SYST 106; BP_SYST 116; BP_DIAS 63; BP_DIAS 67
[2020-11-16 04:00] VITALS: BP 95/58
[2020-11-16] MEDS: BLOOD SUGAR DIAGNOSTIC 1 EACH STRIP IN SCH ×5 (05:30→21:58)
--- NOTE | 2020-11-16 05:30 | NUR ---
MS1 RN NOTES ACCU-CHECK BLOOD SUGAR CHECK 155,COVERED WITH HUMULIN R 2 UNITS PER SLIDING SCALE..GT FEEDING IN PROGRESS.
[2020-11-16] MEDS: INSULIN REGULAR, HUMAN 100 UNIT/ML 3 ML VIAL SQ PRN ×3 (05:33→19:17)
[2020-11-16 06:03] LABS: BASOPHILS # (AUTO) 0.1 K/uL (0.0-0.2); BASOPHILS % (AUTO) 1.1 % (0.0-2.0); EOSINOPHILS % (AUTO) 4.2 % (0.0-6.0); HEMATOCRIT 28 % (39-51); HEMOGLOBIN 9.1 g/dL (13.5-17.5); LYMPHOCYTES # (AUTO) 0.8 K/uL (0.8-4.8); LYMPHOCYTES % (AUTO) 6.4 % (20.0-44.0); MEAN CORPUSCULAR HGB CONC 32 g/dl (31.0-36.0); MEAN CORPUSCULAR VOLUME 84 fL (80-96); MONOCYTES # (AUTO) 0.9 K/uL (0.1-1.30); MONOCYTES % (AUTO) 6.8 % (2.0-12.0); NEUTROPHILS # (AUTO) 10.3 K/uL (1.8-8.9); NEUTROPHILS % (AUTO) 81.5 % (43.0-81.0); PLATELET COUNT (AUTO) 516 K/uL (150-450); RED BLOOD CELL COUNT(AUTO) 3.37 MIL/uL (4.5-6.0); WHITE BLOOD COUNT (AUTO) 12.6 K/uL (4.3-11.0)
[2020-11-16 06:09] LABS: ALBUMIN 1.7 g/dL (3.4-5.0); BILIRUBIN,TOTAL 0.1 mg/dL (0.2-1.0); CALCIUM, SERUM 12.1 mg/dL (8.5-10.1); CREATININE 0.8 mg/dL (0.6-1.3); POTASSIUM 4.5 mmol/L (3.5-5.1); TOTAL PROTEIN, SERUM 7.6 g/dL (6.4-8.2)
--- NOTE | 2020-11-16 06:33 | NUR ---
MS1 RN NOTES NO SIGNIFICANT CHANGE IN STATUS,GT FEEDING TOLERATED WELL,NO N/V/D NOTED.NECK CARCINOMA STILL WITH MINIMAL SECRETIONS NOTED.IN NO ACUTE DISTRESS.
[2020-11-16 09:00] VITALS: BP 95/58
[2020-11-16] MEDS: ASPIRIN EC 81 MG TABLET.DR PO SCH (10:27)
[2020-11-16] MEDS: MIDODRINE HCL (5MG) 5 MG TABLET PO SCH ×3 (10:28→18:46)
[2020-11-16] MEDS: ASCORBIC ACID 500 MG TABLET PO SCH (10:28)
[2020-11-16] MEDS: FERROUS SULFATE UDC 300 MG/5 ML UDC PO SCH (10:28)
[2020-11-16] MEDS: FOLIC ACID 1 MG TABLET PO SCH (10:29)
[2020-11-16] MEDS: PANTOPRAZOLE 40 MG TABLET.DR PO SCH (10:29)
[2020-11-16] MEDS: CALCITONIN,SALMON,SYNTHETIC 3.7 ML SPRAY.PUMP NS SCH (11:30)
[2020-11-16 12:10] VITALS: BP 124/64
[2020-11-16 16:00] VITALS: BP 98/53
--- NOTE | 2020-11-16 17:07 | NUR ---
RN NOTES PATIENT COMPLIANT WITH CARE, G-TUBE CONTINUES TO GET CLOGGED PHARM NOTIFIED AND BROUGHT UP BOTH THE GREEN AND THE RED G-TUBE DE-CLOGGER TOOLS IT WILL ONLY BUDGE FOR A LITTLE BIT AND THEN GET CLOGGED UP AND BACK UP AGAIN THIS CONTINUED TO HAPPEN ALL DAY, I TRIED USING WARM WATER TO HELP DISLODGE THE MATTER BUT COULD ONLY GET IT TO WORK VERY SLOWLY AND NOT FLUSH A GOOD FAST FLUSH AT ALL, NO RISIDUAL NOTED, PATIENT SUCTIONED, GAUZE ON NECK CHANGED MULTIPLE TIMES CONTINUES TO FILL WITH FLUID AND BLOOD, PATIENT LETHARGIC WAS UNABLE TO STATE HIS NAME AND BIRTHDATE SUBSTATION TECHNICIAN AWARE SHE CALLED SEVERAL TIMES ASKING IF PATIENT COULD STATE HIS NAME AND BIRTHDATE IN THE PHONE ON MULTIPLE ATTEMPTS BUT PATIENT UNABLE TO DO SO AND NOTIFIED OF SUCH, PATIENT REPOSITIONED SIDE TO SIDE FOR COMFORT AND PREVENTATIVE MEASURE, IV SITE IS PATENT FLUSHING INTACT NO INFLAMMATION AND NO INFILTRATION NOTED, SUBSTATION TECHNICIAN AND CARE TO TRANSFER FACILITY NOTIFIED AT [phone] ADVISED OF PATIENTS CURRENT MENTAL STATUS LETHARGIC AND TIRED AND PLAN IS TO TRANSFER PATIENT OUT TOMORROW TO [facility] AT THIS TIME. CALL LIGHT IN REACH ALL SAFETY MEASURES IN PLACE BED LOW TO FLOOR, WHEELS .LOCKED LIGHTS DIMMED FOR A SOOTHING COMFORTING ATMOSPHERE TO HELP RELAX PATIENT AND REDUCE STRESS AND ANXIETY.
--- NOTE | 2020-11-16 19:24 | NUR ---
rn notes patient sleeping peacefully, cooperative with care, bed locked low to floor, iv site intact, g-tube continues to get clogged and plunged with tools to try to break up clogs used warm water techinque it only helped a little, BS =134 given 2 units of insulin as per sliding scale, the gauze and bandage on left side of neck changed out twice continues to leak fluid and blood and has a foul odor noted, will endorse next change to oncoming shift at this time, patient kept dry and clean and repositioned for comfort and preventative measures. call light in reach.
[2020-11-16 20:00] VITALS: BP 106/63
[2020-11-16] MEDS: ENOXAPARIN SODIUM 40 MG/0.4 ML DISP.SYRIN SQ SCH (21:45)
[2020-11-16] MEDS: LOSARTAN POTASSIUM 50 MG TABLET GT SCH (21:47)
--- NOTE | 2020-11-17 03:28 | NUR ---
RN notes In bed resting comfortably with no distress noted. Alert and oriented, mainly tamazight speaking. On T-piece via cool mist well tolerated. Breathing even and unlabored. Suctioned large amount of semi loose yellowish secretion. No complaint of pain or discomfort. Noted left neck with persistent infected fungating mass, cleanse and treatment done. Kept clean and comfortable. Will endorse to next shift for continuity of care.
--- NOTE | 2020-11-17 03:32 | NUR ---
RN notes In bed resting comfortably with no distress noted. Alert with eye tracking noted, non verbal. On T-piece via cool mist well tolerated. Breathing even and unlabored. Suctioned large amount of semi loose yellowish secretion. No physical manifestation of pain or discomfort. Rogers catheter in place and intact draining clear yellow clear no foul odor urine. Kept clean and comfortable. Will endorse to next shift for continuity of care. Addendum: 11/17/20 at 0337 by PAOLO CARRENO RN wrong documentation
[2020-11-17 04:00] VITALS: BP 125/70
[2020-11-17] MEDS: INSULIN REGULAR, HUMAN 100 UNIT/ML 3 ML VIAL SQ PRN ×3 (06:24→17:02)
[2020-11-17] MEDS: BLOOD SUGAR DIAGNOSTIC 1 EACH STRIP IN SCH ×3 (06:25→17:02)
--- NOTE | 2020-11-17 07:30 | NUR ---
RN MS NOTES PT IN BED, AWAKE, ALERT, NO SIGN OF PAIN OR DISTRESS, GT FEEDING INFUSING WELL, PT PULLED OUT HIS TRACH, NO BLEEDING NOTED, RT CALLED AND IMMEDIATELY REPLACED TRACH, PLACEMENT VERIRIED, DR. RODRIGUEZ INFORMED, WILL CONTINUE TO MONITOR.
[2020-11-17] MEDS: PANTOPRAZOLE 40 MG TABLET.DR PO SCH (08:33)
[2020-11-17] MEDS: FERROUS SULFATE UDC 300 MG/5 ML UDC PO SCH (08:33)
[2020-11-17] MEDS: ASPIRIN EC 81 MG TABLET.DR PO SCH (08:33)
[2020-11-17] MEDS: ASCORBIC ACID 500 MG TABLET PO SCH (08:33)
[2020-11-17] MEDS: FOLIC ACID 1 MG TABLET PO SCH (08:33)
[2020-11-17] MEDS: MIDODRINE HCL (5MG) 5 MG TABLET PO SCH ×3 (08:34→16:53)
[2020-11-17] MEDS: CALCITONIN,SALMON,SYNTHETIC 3.7 ML SPRAY.PUMP NS SCH (08:55)
--- NOTE | 2020-11-17 10:20 | NUR ---
RN MS NOTES PT IN BED, RESTING, SEEN BY DR. RODRIGUEZ, ORDERS RECEIVED TO APPLY BILATERAL SOFT WRIST RESTRAINTS TO PREVENT PT FROM PULLING OUT TRACH AND TUBES, REPOSITIONED FOR COMFORT.
[2020-11-17 16:53] VITALS: BP 92/55
--- NOTE | 2020-11-17 19:42 | NUR ---
MACHINE STRAW HAT PRESSER NOTES PT IN BED, AWAKE, NO SIGN OF PAIN OR DISTRESS, NO SHORTNESS OF BREATH NOTED, SEEN BY DR. RODRIGUEZ, DISCHARGE AND MEDICATION INSTRUCTIONS PROVIDED TO ADMITTING NURSE ARIANNA SILVA OF [facility], GRAND DAUGHTER ALEXI INFORMED OF DISCHARGE ARRANGEMENTS, PICKED UP BY 3 AMBULANCE PERSONNEL, LEFT VIA GUERNEY IN STABLE CONDITION.
== END 2020-11-17 21:16 | DRG 110 ==
LOC: ER 22:33 → TELE1 11-06 00:44 → MEDSG1 11-14 12:25 → UNDODISIN 11-14 15:30
PROVIDERS: ADMIT Nurse Practitioner Family; ATTEND Nurse Practitioner Acute Care
DX: C76.0 Malignant neoplasm of head, face and neck (principal); N17.0 Acute kidney failure with tubular necrosis; J96.21 Acute and chronic respiratory failure with hypoxia; I21.A1 Myocardial infarction type 2; E43 Unspecified severe protein-calorie malnutrition; J18.9 Pneumonia, unspecified organism; R53.2 Functional quadriplegia; C79.51 Secondary malignant neoplasm of bone; D68.59 Other primary thrombophilia; Z93.0 Tracheostomy status; I95.9 Hypotension, unspecified; E11.40 Type 2 diabetes mellitus with diabetic neuropathy, unspecified; G62.9 Polyneuropathy, unspecified; E87.0 Hyperosmolality and hypernatremia; E83.52 Hypercalcemia; E86.0 Dehydration; J44.9 Chronic obstructive pulmonary disease, unspecified; Z20.822 Contact with and (suspected) exposure to COVID-19; Z87.891 Personal history of nicotine dependence; E86.1 Hypovolemia; C79.89 Secondary malignant neoplasm of other specified sites; E87.2 Acidosis; G40.909 Epilepsy, unspecified, not intractable, without status epilepticus; Z79.4 Long term (current) use of insulin; Z93.1 Gastrostomy status; D64.9 Anemia, unspecified; J45.909 Unspecified asthma, uncomplicated; E88.09 Other disorders of plasma-protein metabolism, not elsewhere classified; J98.11 Atelectasis; R13.10 Dysphagia, unspecified; Z68.24 Body mass index [BMI] 24.0-24.9, adult; Z98.890 Other specified postprocedural states
CPT/HCPCS: 31720; 36415; 71045-TC; 80048-TC; 80053-TC; 80061-TC; 80076-TC; 82040-TC; 82330; 82962-TC; 83605-TC; 83735-TC; 83880; 83970; 84100-TC; 84443-TC; 84484-TC; 85025-TC; 87040-TC; 87081-TC; 87086-TC; 94640-TC; 94760-TC; 94762-TC; 94799-TC; A4217; A4623; A6253; A6403; A7526; C9803; G0378; J0770; J1650; J1815; J2430; J2543; J3370; J3490; J7040; J7060; U0003